=== PATIENT | female | born 1990 | race Caucasian/White ===

== ENCOUNTER → 2021-02-17 12:51 | Outpatient (BNVA) | payer OTHER, SELFPAY | PROVIDERS: PCP Physician Assistant Medical; Referring Provider Physician Assistant Medical; Visit Provider Anesthesiology ==

== ENCOUNTER 2021-03-30 15:04 | Outpatient (REF) | payer OTHER, SELFPAY ==
--- NOTE | ~2021-03-30 | XR_ITS ---
EXAMINATION: XR BILATERAL HIPS WITH AP PELVIS CLINICAL INFORMATION: Primary osteoarthritis, right hip COMPARISON: None TECHNIQUE: AP view of the pelvis and single views of each hip were obtained. FINDINGS: Bone alignment is normal. No fracture or dislocation is seen. The joint spaces are normal. Bones of the pelvis are normal. Soft tissues are normal. XR/XR hips MIKE min 3V IMPRESSION: Normal pelvis and hips.
== END 2021-03-30 15:05 | disposition home or self-care (01) ==
LOC: HO.XRAY 15:04
PROVIDERS: Visit Provider Anesthesiology
DX: M16.11 Unilateral primary osteoarthritis, right hip (principal)
CPT/HCPCS: 73522

== ENCOUNTER → 2021-04-07 11:39 | Outpatient (BNVA) | payer OTHER, SELFPAY | PROVIDERS: Visit Provider Anesthesiology ==

== ENCOUNTER 2021-04-20 06:16 | Outpatient (REF) | payer OTHER, SELFPAY ==
--- NOTE | ~2021-04-20 | FL_ITS ---
EXAMINATION: XR FLUOROSCOPY WITH IMAGES CLINICAL INFORMATION: Sacroiliitis. COMPARISON: Pelvic and hip radiographs dated 03/30/2021. TECHNIQUE: Fluoroscopy performed by Dr. Dean. Fluoroscopy time: 0.1 minutes DAP: 1.06 Gycm2 Images: 1 FINDINGS: Limited intraoperative fluoroscopic radiograph demonstrates injection in the region of the left sacroiliac. FL/FL guidance in treatment room IMPRESSION: Intraoperative fluoroscopic radiographs.
== END 2021-04-20 06:17 | disposition home or self-care (01) ==
LOC: HO.RADIR 06:16
PROVIDERS: Visit Provider Anesthesiology
DX: M46.1 Sacroiliitis, not elsewhere classified (principal); M53.3 Sacrococcygeal disorders, not elsewhere classified; M51.36 Other intervertebral disc degeneration, lumbar region; M47.816 Spondylosis without myelopathy or radiculopathy, lumbar region; M16.11 Unilateral primary osteoarthritis, right hip
CPT/HCPCS: 27096; J3300; Q9967

== ENCOUNTER → 2021-05-19 11:50 | Outpatient (BNVA) | payer OTHER, SELFPAY | PROVIDERS: PCP Physician Assistant Medical; Visit Provider Anesthesiology ==

== ENCOUNTER → 2021-08-04 11:13 | Outpatient (BNVA) | payer OTHER, MEDICAID, SELFPAY | PROVIDERS: PCP Physician Assistant Medical; Visit Provider Anesthesiology ==

== ENCOUNTER 2021-09-13 15:39 | Outpatient (RCR) | payer OTHER, SELFPAY ==
--- NOTE | 2021-12-02 09:22 | MHC.PT.DC ---
[facility] [place] Office [place] Office [place] Office [address] Len Leon [address] [phone] F: [phone] F: [phone] F: [phone] F: [phone] Physical Therapy Discharge Report Diagnosis: Date of Surgery: Date of Evaluation: Date of Discharge: Treatments to Date: Cancellations to Date: No Shows to Date: Discharge Status: Discharge Summary: Pt presented to evaluation questioning PT as to why she was here. Pt appeared to be agitated. Pt was informed she was referred to PT for cervicalgia and pain in her thoracic spine. Pt stating this area of her body was no longer painful and that her pain is now in her low back. Pt stating she wants another injection in her low back. Advised pt she should discuss this with her doctor. PT then educated pt on what PT entails and what is expected of her in PT including attending in person 2 times a week with an HEP daily at home. Pt stating she was not willing to comply with this expectation and proceeded to get up and leave therefore terminating the evaluation. Electronically signed by: Please sign and return to therapist. Thank you for your referral.
== END 2021-12-02 09:22 | disposition home or self-care (01) ==
LOC: HO.PT 15:39
PROVIDERS: Visit Provider Anesthesiology
DX: M54.2 Cervicalgia (principal); M54.6 Pain in thoracic spine

== ENCOUNTER → 2021-09-29 15:44 | Outpatient (BNVA) | payer OTHER, SELFPAY | PROVIDERS: PCP Physician Assistant Medical; Visit Provider Anesthesiology ==

== ENCOUNTER 2021-10-26 05:53 | Outpatient (REF) | payer OTHER, SELFPAY ==
--- NOTE | ~2021-10-26 | FL_ITS ---
EXAMINATION: XR FLUOROSCOPY WITH IMAGES CLINICAL INFORMATION: M46.1 - Sacroiliitis, not elsewhere classified COMPARISON: Fluoroscopic spot view 04/20/2021. TECHNIQUE: Fluoroscopy performed by Dr. Nik Dean. Fluoroscopy time: 0.2 minutes DAP: 1.85 Gycm2 Images: 2 FINDINGS: Spinal needle overlies lower right sacroiliac joint. There is para-articular contrast in the soft tissues and likely intra-articular contrast. No visible vascular communication. FL/FL guidance in treatment room IMPRESSION: Fluoroscopy for pain management procedure.
== END 2021-10-26 05:54 | disposition home or self-care (01) ==
LOC: HO.RADIR 05:53
PROVIDERS: Visit Provider Anesthesiology
DX: M46.1 Sacroiliitis, not elsewhere classified (principal); M47.816 Spondylosis without myelopathy or radiculopathy, lumbar region; M53.3 Sacrococcygeal disorders, not elsewhere classified; M51.36 Other intervertebral disc degeneration, lumbar region; G89.29 Other chronic pain
CPT/HCPCS: 27096; J3300; Q9967

== ENCOUNTER → 2021-11-24 09:38 | Outpatient (BNVA) | payer OTHER, MEDICAID, SELFPAY | PROVIDERS: PCP Physician Assistant Medical; Visit Provider Anesthesiology ==

== ENCOUNTER 2022-08-25 14:26 | Outpatient (REF) | payer OTHER, SELFPAY ==
--- NOTE | ~2022-08-25 | XR_ITS ---
EXAMINATION: BILATERAL KNEE X-RAY CLINICAL INFORMATION: Pain COMPARISON: None TECHNIQUE: Standing AP view of both knees and lateral and sunrise view of the left knee FINDINGS: Left knee: Bone alignment is normal. No fracture or dislocation is seen. Joint spaces are normal. There is no joint effusion. Standing AP view of the right knee is unremarkable. XR/XR knee LT 2V IMPRESSION: Unremarkable exam.
--- NOTE | ~2022-08-25 | XR_ITS ---
EXAMINATION: BILATERAL KNEE X-RAY CLINICAL INFORMATION: Pain COMPARISON: None TECHNIQUE: Standing AP view of both knees and lateral and sunrise view of the left knee FINDINGS: Left knee: Bone alignment is normal. No fracture or dislocation is seen. Joint spaces are normal. There is no joint effusion. Standing AP view of the right knee is unremarkable. XR/XR knee standing BI IMPRESSION: Unremarkable exam.
== END 2022-08-25 14:27 | disposition home or self-care (01) ==
LOC: HO.HOSX 14:26
PROVIDERS: Visit Provider Physician Assistant
DX: M25.562 Pain in left knee (principal)
CPT/HCPCS: 73560; 73565

== ENCOUNTER → 2022-09-26 09:29 | Outpatient (BNVA) | payer OTHER, SELFPAY | PROVIDERS: PCP Physician Assistant Medical; Visit Provider Internal Medicine | DX: M54.16 Radiculopathy, lumbar region (principal); M54.2 Cervicalgia; M54.6 Pain in thoracic spine; M47.816 Spondylosis without myelopathy or radiculopathy, lumbar region; M25.562 Pain in left knee | CPT/HCPCS: 99212 ==

== ENCOUNTER → 2023-02-10 11:11 | Outpatient (BNVA) | payer OTHER, SELFPAY | PROVIDERS: PCP Physician Assistant Medical; Visit Provider Internal Medicine | DX: M46.1 Sacroiliitis, not elsewhere classified (principal); M54.16 Radiculopathy, lumbar region; M47.816 Spondylosis without myelopathy or radiculopathy, lumbar region; M25.562 Pain in left knee | CPT/HCPCS: 99212 ==

== ENCOUNTER 2024-02-12 11:05 | Outpatient (AMB) | payer OTHER, SELFPAY ==
--- NOTE | 2024-02-12 11:11 | A.OFFVIS_ITS ---
Intake Vital Signs 02/12/24 11:21 Height 5 ft 2 in Weight 176 lb BMI 32.2 BP 140/84 H Blood Pressure Location Lt brachial Position Sitting Respiration 12 Pulse 90 Pulse Source Pulse Oximeter Pulse Oximetry (%) 96 Oxygen Delivery Method Room Air Intake Visit Reasons: Lumbar and Hip Pain Intake Note: Patient comes in to discuss hip pain. Reports pain 5/10 Allergies No Known Allergies Allergy (Verified 02/12/24 11:23) HPI HPI Comments History of Present Illness Details Ms. Mayorga today in my office again after long period of absence. She reports widespread pain starting from lower neck down the pain in between the shoulder blades lower thoracic spine lumbar spine pain in bilateral sacroiliac joints pain in bilateral knees. She reports that all of those pains are very severe and interfere with her activities of daily living. In the past she was under observation of sacroiliitis in this office she was treated with 2 injections 1 diagnostic and therapeutic to help her pain. She reports that she is smoking cigarettes. 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 I offered her to perform repeat of bilateral sacroiliac joint injections to at least help pain in the lower lumbar spine. Patient refused. 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 Review of Systems Const All systems reviewed & are unremarkable except as noted in HPI and below ENT Reports Normal hearing present Neuro Reports Normal hearing present, Denies confusion and Denies Sensory deficit (Neuro) Psych Denies confusion Physical Exam Vital Signs: Last Vital Signs Pulse 90 02/12/24 11:21 Resp 12 02/12/24 11:21 BP 140/84 H 02/12/24 11:21 Pulse Ox 96 02/12/24 11:21 Oxygen Delivery Method Room Air 02/12/24 11:21 BMI result Body Mass Index 32.2 Const General: comfortable, no acute distress, well developed, alert and awake; No confusion Orientation/consciousness: No confusion Eyes Pupils: Equal, round and reactive pupils present EOM: EOMs intact bilaterally Chest Chest palpation & inspection: normal inspection of the chest Resp Effort & Inspection: normal respiratory effort, able to speak in complete sentences, normal respiratory pattern, no audible wheezes and no cough Cardio Jugular venous distension: no JVD Back/Spine/Pelvis Other: tenderness on palpation in paraspinal spinal region in lumbar spine. Loading test is positive. Range of motion in lumbar spine is preserved. However she reports severe pain flexing backward and flexing forward. Garrett test is positive on the right she also reports discomfort in her groin with performing of Garrett test on the right. Straight leg rising is negative bilaterally. She exhibits normal strength of bilateral lower extremities is able to walk on bilateral feet non bilateral toes and on bilateral heels. She denies any sensory changes in bilateral lower extremities. She denies pelvic organ dysfunction. Neuro General: No confusion Cranial nerves: Yes Equal, round and reactive pupils present and Yes Normal hearing present Sensory Exam: No Sensory deficit (Neuro) Psych Speech and movement: Normal speech and movement present Affect: normal affect Attitude: cooperative Thought process: Normal thought process present Thought content: Normal thought content present Insight: Good insight present (Psych) Judgement: Good judgement present (Psych) Results Reviewed Results Reviewed: MRI of the lumbar spine 07/23/2020. Normal anatomic alignment moderate degenerative disc disease L4-5 L5-S1 vertebral body heights are maintained. The intervertebral discs of normal height is signal. Conus terminates at L1. L1-L2 normal annular contour no facet joint arthropathy no foraminal stenosis no spinal stenosis L2-L3 normal contour no facet arthropathy no neural foraminal stenosis no spinal canal stenosis. L3-L4 normal annular contour no facet joint arthropathy no neural foraminal stenosis no spinal canal stenosis. L4-5 mild diffuse disc bulge with superimposed moderate right subarticular foraminal extrusion. There is moderate bilateral facet joint arthropathy. There is moderate bilateral neural foraminal stenosis. There is stenosis of the right greater than left recess with mass effect on traversing L5 nerve roots. No overt spinal canal stenosis centrally. L5-S1. Central disc extrusion with slight superior migration. There is mild bilateral facet joint arthropathy there is mild bilateral neural foraminal stenosis. There is no spinal canal stenosis. Assessment & Plan Assessment & Plan (1) Lumbar radiculopathy: Code(s): M54.16 - Radiculopathy, lumbar region (2) Left knee pain: Code(s): M25.562 - Pain in left knee (3) Right knee pain: Code(s): M25.561 - Pain in right knee (4) Rheumatoid arthritis: Code(s): M06.9 - Rheumatoid arthritis, unspecified Plan This patient is back in my office after a long period of absence. I offered her to repeat sacroiliac joint injections to at least help her lower back pain she refused to go for the procedure. She reports widespread pain starting from the neck, pain in between the shoulder blades, pain in the lower thoracic spine, pain in the lower lumbar spine, pain in bilateral knees. She expressed firmly today that she is very reluctant to go for the additional repeat injections. Therefore this office can not help at this time this patient. I offered her to go for rheumatology consult I will make appropriate referral. Orders: Referrals Rheumatology Referral M06.9 - Rheumatoid arthritis, unspecified Coding Level of Care Code Est Pt Level 3 (22376) Diagnoses Lumbar radiculopathy M54.16 Left knee pain M25.562 Right knee pain M25.561 Rheumatoid arthritis M06.9
[2024-02-12 11:21] VITALS: BP 140/84; PULSE 90; RESP 12; O2SAT 96; BMI 32.2
== END 2024-02-12 11:42 | disposition home or self-care (01) ==
LOC: HO.PMC 11:05
PROVIDERS: PCP Physician Assistant Medical; Visit Provider Anesthesiology
DX: M54.16 Radiculopathy, lumbar region (principal); M25.562 Pain in left knee; M25.561 Pain in right knee; M06.9 Rheumatoid arthritis, unspecified
CPT/HCPCS: 99213

== ENCOUNTER → 2024-02-12 11:05 | Outpatient (BNVA) | payer OTHER, SELFPAY | PROVIDERS: PCP Physician Assistant Medical; Visit Provider Anesthesiology | DX: M54.50 Low back pain, unspecified (principal); M25.559 Pain in unspecified hip; M54.16 Radiculopathy, lumbar region; M25.562 Pain in left knee; M25.561 Pain in right knee; M06.9 Rheumatoid arthritis, unspecified | CPT/HCPCS: 99212 ==

== ENCOUNTER 2024-05-03 14:36 | Outpatient (AMB) | payer OTHER, SELFPAY ==
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
[2024-05-03 14:49] VITALS: BP 100/80; PULSE 85; O2SAT 99; BMI 32.0
== END 2024-05-03 15:12 | disposition home or self-care (01) ==
PROVIDERS: PCP Physician Assistant Medical; Visit Provider Nurse Practitioner Family
DX: M53.3 Sacrococcygeal disorders, not elsewhere classified (principal); G89.29 Other chronic pain; M47.816 Spondylosis without myelopathy or radiculopathy, lumbar region
CPT/HCPCS: 99204

== ENCOUNTER → 2024-05-03 14:36 | Outpatient (BNVA) | payer OTHER, SELFPAY | PROVIDERS: PCP Physician Assistant Medical; Visit Provider Nurse Practitioner Family | DX: M47.816 Spondylosis without myelopathy or radiculopathy, lumbar region (principal); M53.3 Sacrococcygeal disorders, not elsewhere classified; G89.29 Other chronic pain | CPT/HCPCS: 99202 ==

== ENCOUNTER 2024-12-12 14:03 | Outpatient (AMB) | payer MEDICAID, SELFPAY ==
[2024-12-12 14:12] VITALS: BP 130/76; PULSE 89; RESP 15; O2SAT 99; BMI 33.3
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
--- OUTSIDE RECORDS SUMMARY | 2024-12-12 18:36 | XMS_ITS ---
Author Organization [facility] Address [address] [place] [address] Phone Care Team Providers Care Cloth Mender Name Role Phone Nara Grijalva Primary Care Provider [phone] [facility] Unavailable [phone] Plan of Treatment No Plan of Treatment Recorded Assessments Includes: Assessments for all patient encounters No Assessments Recorded Medical Equipment - Implanted Devices Includes: Current and historical Devices No Medical Equipment Recorded Medications Administered Includes: Administered Medications in patient's chart No Administered Medications Recorded Vital Signs Includes: Vital Signs from 12/12/2023 through 12/12/2024 Vital Name 06/20/2024 10:42A 03/26/2024 08:46A 02/28 10:11A Blood Pressure Sitting (mmHg) 124/83 113/82 118/79 Pulse Rate-Sitting (bpm) 81 86 82 Temp-Temporal 96.9 97.1 97 Height (in) 63 63 63 Weight (lb) 181 181 170 Body Mass Index 32.1 32.1 30.1 Body Surface Area 1.9 1.9 1.8 Oxygen Saturation (%) 99 98 99 Last Documented: On 06/20/2024 10:42A M ; [facility], On 03/26/2024 8:47AM ; [facility], On 02/29/2024 10:11AM ; [facility] Results Includes: Results from 12/12/2023 through 12/12/2024 No Results Recorded For Specified Dates History of Present Illness History of Present Illness not supported for this document type No History of Present Illness Recorded Social History No Social History Recorded - Smoking Status Unknown Procedures and Surgical History Includes: Procedures from 12/12/2023 through 12/12/2024 Procedures Code Diagnosis Performing Provider Service Location Service Date X-Ray Exam Of Hand, min 3 views (Professional Comp., Right, Right Hand, Thumb) [id number] Cellulitis of right finger Joyce Magana MD [facility], 06/20/2024 Last Documented On 4 12:54PM ; [facility], X-Ray Exam Of Hand, min 3 views (Technical Ccomponent, Right, Right Hand, Thumb) [id number] Cellulitis of right finger [facility], 06/20/2024 Last Documented On 4 12:54PM ; [facility], X-Ray Exam Of Hand, min 3 views (Right, Right Hand, Thumb) [id number] Cellulitis of right finger [facility]undo Treadwell [facility], 03/26/2024 Last Documented On 4 10:18AM ; [facility], X-Ray Exam Of Hand, min 3 views (Right, Right Hand, Thumb) [id number] Cellulitis of right finger [facility], 02/29/2024 Last Documented On 4 8:39AM ; [facility], Medical History Includes: Medical History in patient's chart No Medical History Recorded Family History Includes: Family History in patient's chart No Family History Recorded Review of Systems Review of Systems not supported for this document type No Review of Systems Recorded Mental Status No Mental Status Recorded Functional Status No Functional Status Recorded Physical Exam Physical Exam not supported for this document type No Physical Exam Recorded Encounters Includes: Encounters from 12/12/2023 through 12/12/2024 Encounter Provider Location Date Check-In Time Check-Out Time Diagnosis Established Patient Joyce Magana MD [facility], 024 9:20AM 10:08AM Established Patient [facility], 024 8:40AM 9:02AM Established Patient [facility], 024 10:00AM 10:14AM Insurance Includes: Active Insurance Policies Plan Name Member ID Group # Subscriber Relationship Effect carla Dates 1 - [facility] [id number] HERMAN DILLARD Self Clinical Notes Includes: Signed Clinical Notes starting from 11/06/2022 * Progress note Date Encounter Last Documented by 06/20/2024 Established Patient Last emmanuelle lee on 06/20/2024; 10:44 AM, Joyce Magana MD; [facility], Physical Findings - Vitals taken 06/20/2024 10:42 am BP-Sitting 124/83 mmHg Pulse Rate-Sitting 81 bpm Temp-Temporal 96.9 F Height 63 in Weight 181 lbs Body Mass Index 32.1 kg/m2 Body Surface Area 1.9 m2 Oxygen Saturation 99 % Plan StartCited - Cellulitis of right finger Follow Up/Appointment: PRN EndCited User Defined 4 CHIEF COMPLAINT Right thumb infection that started with an artificial nail HISTORY OF PRESENT ILLNESS The patient is a 33-year-old female. She developed an infection involving the nail of her right thumb after having an artificial nail. She is here today for follow- up. no pain. doing well. PHYSICAL FINDINGS - Vitals taken 03/26/2024 08:46 am BP-Sitting 113/82 mmHg Pulse Rate-Sitting 86 bpm Temp-Temporal 97.1 F Height 63 in Weight 181 lbs Body Mass Index 32.1 kg/m2 Body Surface Area 1.9 m2 Oxygen Saturation 98 % No signs of infection right thumb at this point. Good motion of IP joint right thumb. New nail right thumb growing in. Tip of right thumb with good sensation and color IMPRESSION 1. Resolved infection tip of right thumb 2. New nail growing in PLAN f/u prn 1. Continue with good hygiene tip of right thumb with soap and water and possible Neosporin ointment 2. Continue with occupational therapy to restore function right thumb. * Progress note Date Encounter Last Documented by 03/26/2024 Established Patient Last docdorys lee on 03/26/2024; 9:13 AM, Raymundo Treadwell MD; [facility], Chief Complaint Right thumb infection that started with an artificial nail History of Present Illness The patient is a 33-year-old female. She developed an infection involving the nail of her right thumb after having an artificial nail. She is here today for follow- up. Physical Findings - Vitals taken 03/26/2024 08:46 am BP-Sitting 113/82 mmHg Pulse Rate-Sitting 86 bpm Temp-Temporal 97.1 F Height 63 in Weight 181 lbs Body Mass Index 32.1 kg/m2 Body Surface Area 1.9 m2 Oxygen Saturation 98 % No signs of infection right thumb at this point. Good motion of IP joint right thumb. New nail right thumb growing in. Tip of right thumb with good sensation and color User Defined 4 1. Resolved infection tip of right thumb 2. New nail growing in Plan StartCited - Cellulitis of right finger Follow Up/Appointment: 6 weeks EndCited 1. Continue with good hygiene tip of right thumb with soap and water and possible Neosporin ointment 2. Continue with occupational therapy to restore function right thumb. 3. Scheduled final visit in 6 weeks. * Progress note Date Encounter Last Documented by 02/29/2024 Established Patient Last documen rosa on 02/29/2024; 11:07 AM, Joyce Magana MD; [facility], Physical Findings - Vitals taken 02/29/2024 10:11 am BP-Sitting 118/79 mmHg Pulse Rate-Sitting 82 bpm Temp-Temporal 97 F Height 63 in Weight 170 lbs Body Mass Index 30.1 kg/m2 Body Surface Area 1.8 m2 Oxygen Saturation 99 % Plan StartCited - Cellulitis of right finger Follow Up/Appointment: 2 Weeks EndCited User Defined 4 Chief complaint Right thumb infection status post I&D HPI Patient presents today for follow-up. She has been taking antibiotics and still has another 5 days left. She states that she has minimal to no drainage. She is been soaking it daily. States the redness and swelling have essentially resolved. She still has some mild swelling. Her main complaint really is that she has limited range of motion. She states she has mild pain. Physical examination Mild to moderate swelling of the distal pulp of the digit. No erythema. No drainage expressible. Obvious nail deformity. Limited active range of motion of the IP joint but able to demonstrate about 30 to 40 degree arc of motion of the IP joint passively. Warm well-perfused hand with good cap refill X-rays reviewed. There is a question of osteomyelitis on one of the prior x-rays but clinically patient does not seem to have that sort of exam. Additionally her clinical history does not correlate with osteomyelitis Assessment plan Continue antibiotics. Follow-up in 2 weeks. Rest, ice, elevate. Continue soaking as needed. Given a prescription for therapy to work on range of motion. Keep the area clean and covered. If any worsening of symptoms please come back immediately.
--- OUTSIDE RECORDS SUMMARY | 2024-12-12 18:36 | XMS_ITS ---
Care Plan - [facility] Created on: December 12, 2024 HERMAN DILLARD : 1990 Sex: Female Author Organization [facility] Address [address] [place] [address] Phone Care Team Providers Care Drier And Grinder Tender Name Role Phone Nara Grijalva Primary Care Provider [phone] [facility] Unavailable [phone]
--- OUTSIDE RECORDS SUMMARY | 2024-12-12 18:37 | XMS_ITS | Clinical Summary ---
Author Organization [facility] Address [address] [place] [address] Phone Care Team Providers Care Technical Maintenance Specialist Name Role Phone Nara Grijalva Primary Care Provider [phone] [facility] Un[facility] [phone] Reason for Visit and Chief Complaint Established Patient Plan of Treatment Pending Tests Order Diagnosis Results Due Ordering P rovider Follow Up - Appointment PRN Cellulit is of right finger 06/20/24 Joyce Magana MD Last Documented On 4 10:44AM ; [facility] Assessments Includes: Assessments from this encounter No Assessments Recorded Medical Equipment - Implanted Devices Includes: Current Devices No Medical Equipment Recorded Medications Administered Includes: Administered Medications from this encounter No Administered Medications Recorded Vital Signs Includes: Vital Signs from this encounter Vital Name 06/20/2024 10:42A Blood Pressure Sitting (mmHg) 124/83 Pulse Rate-Sitting (bpm) 81 Temp-Temporal 96.9 Height (in) 63 Weight (lb) 181 Body Mass Index 32.1 Body Surface Area 1.9 Oxygen Saturation (%) 99 Last Documented: On 06/20/2024 10:42A M ; [facility] Results Includes: Results discussed during this encounter No Results Recorded For Specified Dates History of Present Illness Includes: History of Present Illness from this encounter No History of Present Illness Recorded Social History No Social History Recorded - Smoking Status Unknown Procedures and Surgical History Includes: Procedures from this encounter Procedures Code Diagnosis Performing Provider Service Location Service Date X-Ray Exam Of Hand, min 3 views (Professional Comp., Right, Right Hand, Thumb) [id number] Cellulitis of right finger Joyce Magana MD [facility] 06/20/2024 Last Documented On 4 12:54PM ; [facility] Of Hand, min 3 views (Technical Ccomponent, Right, Right Hand, Thumb) [id number] Cellulitis of right finger [facility] 06/20/2024 Last Documented On 12:54PM ; [facility] Medical History Includes: Medical History addressed during this encounter No Medical History Recorded Family History Includes: Family History addressed during this encounter No Family History Recorded Review of Systems Includes: Review of Systems from this encounter CHIEF COMPLAINT Right thumb infection that started [...] occupational therapy to restore function right thumb. Mental Status Includes: Mental Status from this encounter No Mental Status Recorded Functional Status Includes: Functional Status from this encounter No Functional Status Recorded Physical Exam Includes: Physical Exam from this encounter Encounters Encounter Provider Location Date Check-In Time Check-Out Time Diagnosis Established Patient [facility] 0[facility] 9:20AM 10:08AM Insurance Includes: Active Insurance Policies Plan Name Member ID Group # Subscriber Relationship Effect carla Dates 1 - [facility] [id number] HERMAN Anderson Clinical Notes Includes: Clinical Notes from this encounter * Progress note Date Encounter Last Documented by 06/20/2024 Established Patient Triston lee on 06/20/2024; 10:44 AM, Joyce Magana MD; [facility], Physical Findings - Vitals taken 06/20/2024 10:42 [...]
--- OUTSIDE RECORDS SUMMARY | 2024-12-12 18:37 | XMS_ITS | Clinical Summary ---
Author Organization [facility] Address [address] [place] [address] Phone Care Team Providers Care Perch Machine Inspector Name Role Phone Nara Grijalva Primary Care Provider [phone] [facility] Unavailable [phone] Reason for Visit and Chief Complaint Established Patient Plan of Treatment No Plan of Treatment Recorded Assessments Includes: Assessments from this encounter No Assessments Recorded Medical Equipment - Implanted Devices Includes: Current Devices No Medical Equipment Recorded Medications Administered Includes: Administered Medications from this encounter No Administered Medications Recorded Results Includes: Results discussed during this encounter No Results Recorded For Specified Dates History of Present Illness Includes: History of Present Illness from this encounter No History of Present Illness Recorded Social History No Social History Recorded - Smoking Status Unknown Medical History Includes: Medical History addressed during this encounter No Medical History Recorded Family History Includes: Family History addressed during this encounter No Family History Recorded Review of Systems Includes: Review of Systems from this encounter No Review of Systems Recorded Mental Status Includes: Mental Status from this encounter No Mental Status Recorded Functional Status Includes: Functional Status from this encounter No Functional Status Recorded Physical Exam Includes: Physical Exam from this encounter No Physical Exam Recorded Insurance Includes: Active Insurance Policies Plan Name Member ID Group # Subscriber Relationship Effect carla Dates 1 - [facility] [id number] HERMAN DILLARD Self Clinical Notes Includes: Clinical Notes from this encounter No Clinical Notes Recorded
--- OUTSIDE RECORDS SUMMARY | 2024-12-12 18:38 | XMS_ITS | Clinical Summary ---
Author Organization [facility] Address [address] [place] [address] Phone Care Team Providers Care Blogs Manager Name Role Phone Nara Grijalva Primary Care Provider [phone] [facility] Unavailable [phone] Reason for Visit and Chief Complaint Established Patient Plan of Treatment Pending Tests Order Diagnosis Results Due Ordering P moustapha Follow Up - Appointment 2 Weeks Cellulitis of right finger 02/29/24 Joyce Magana MD Last Documented On 4 11:07AM ; [facility] [place] [place] Assessments Includes: Assessments from this encounter No Assessments Recorded Medical Equipment - Implanted Devices Includes: Current Devices No Medical Equipment Recorded Medications Administered Includes: Administered Medications from this encounter No Administered Medications Recorded Vital Signs Includes: Vital Signs from this encounter Vital Name 02/29/2024 10:11A Blood Pressure Sitting (mmHg) 118/79 Pulse Rate-Sitting (bpm) 82 Temp-Temporal 97 Height (in) 63 Weight (lb) 170 Body Mass Index 30.1 Body Surface Area 1.8 Oxygen Saturation (%) 99 Last Documented: On 02/29/2024 10:11A M ; [facility] [place] Results Includes: Results discussed during this encounter [...] min 3 views (Right, Right Hand, Thumb) [id number] Cellulitis of right finger Joyce Magana MD [facility] 02/29/2024 Last Documented On 4 8:39AM ; [facility] [place] Medical History Includes: Medical History addressed during this encounter No Medical History Recorded Family History Includes: Family History addressed during this encounter No Family History Recorded Review of Systems Includes: Review of Systems from this encounter Chief complaint Right thumb infection status post [...] worsening of symptoms please come back immediately. Mental Status Includes: Mental Status from this encounter No Mental Status Recorded Functional Status Includes: Functional Status from this encounter No Functional Status Recorded Physical Exam Includes: Physical Exam from this encounter Encounters Encounter Provider Location Date Check-In Time Check-Out Time Diagnosis Established Patient Joyce Magana MD [facility] 024 10:00AM 10:14AM Insurance Includes: Active Insurance Policies Plan Name Member ID Group # Subscriber Relationship Effect carla Dates 1 - [facility] [id number] HERMAN DILLARD Self Clinical Notes Includes: Clinical Notes from this encounter * Progress note Date Encounter Last Documented by 02/29/2024 Established Patient Triston handley rosa on 02/29/2024; 11:07 AM, Joyce Magana MD; [facility], Physical Findings - Vitals taken 02/29/2024 10:11 [...]
--- OUTSIDE RECORDS SUMMARY | 2024-12-12 18:38 | XMS_ITS | Clinical Summary ---
Author Organization [facility] Address [address] [place] [address] Phone Care Team Providers Care Circus Laborer Name Role Phone Nara Grijalva Primary Care Provider [phone] [facility] Unavailable [phone] Reason for Visit and Chief Complaint Established Patient Plan of Treatment 1. Continue with good hygiene tip of right thumb with soap and water and possible Neosporin ointment 2. Continue with occupational therapy to restore function right thumb. 3. Scheduled final visit in 6 weeks. - Last Documented On 03/26/2024 9:13AM ; [facility] Pending Tests Order Diagnosis Results Due Ordering Carroll gerard Follow Up - Appointment 6 weeks Cellulit is of right finger 03/26/24 Raymundo Treadwell MD Last Documented On 9:12AM ; [facility] Assessments Includes: Assessments from this encounter No Assessments Recorded Medical Equipment - Implanted Devices Includes: Current Devices No Medical Equipment Recorded Medications Administered Includes: Administered Medications from this encounter No Administered Medications Recorded Vital Signs Includes: Vital Signs from this encounter Vital Name 03/26/2024 08:46A Blood Pressure Sitting (mmHg) 113/82 Pulse Rate-Sitting (bpm) 86 Temp-Temporal 97.1 Height (in) 63 Weight (lb) 181 Body Mass Index 32.1 Body Surface Area 1.9 Oxygen Saturation (%) 98 Last Documented: On 03/26/2024 8:47AM ; [facility] Results Includes: Results discussed during this encounter No Results Recorded For Specified Dates History of Present Illness Includes: History of Present Illness from this encounter HPI The patient is a 33-year-old female. She developed an infection involving the nail of her right thumb after having an artificial nail. She is here today for follow-up. Social History No Social History Recorded - Smoking Status Unknown Procedures and Surgical History Includes: Procedures from this encounter Procedures Code Diagnosis Performing Provider Service Location Service Date X-Ray Exam Of Hand, min 3 views (Right, Right Hand, Thumb) [id number] Cellulitis of right finger Raymundo Treadwell MD [facility] 03/26/2024 Last Documented On 4 10:18AM ; [facility] Medical History Includes: Medical History addressed during this encounter No Medical History Recorded Family History Includes: Family History addressed during this encounter No Family History Recorded Review of Systems Includes: Review of Systems from this encounter 1. Resolved infection tip of right thumb 2. New nail growing in Mental Status Includes: Mental Status from this encounter No Mental Status Recorded Functional Status Includes: Functional Status from this encounter No Functional Status Recorded Physical Exam Includes: Physical Exam from this encounter Encounters Encounter Provider Location Date Check-In Time Check-Out Time Diagnosis Established Patient Raymundo Treadwell MD [facility] 03/26/20 24 8:40AM 9:02AM Insurance Includes: Active Insurance Policies Plan Name Member ID Group # Subscriber Relationship Effect carla Dates 1 - [facility] [id number] HERMAN Anderson Clinical Notes Includes: Clinical Notes from this encounter * Progress note Date Encounter Last Documented by 03/26/2024 Established Patient Triston lee on 03/26/2024; 9:13 AM, Raymundo Treadwell MD; [facility] Chief Complaint Right thumb infection that started [...]
--- OUTSIDE RECORDS SUMMARY | 2024-12-12 18:38 | XMS_ITS | Clinical Summary ---
Author Organization [facility] Address [address] [place] [address] Phone Care Team Providers Care Folder Taper Operator Name Role Phone Nara Grijalva Primary Care Provider [phone] [facility] Unavailable [phone] Reason for Visit and Chief Complaint Established [...] Subscriber Relationship Effect carla Dates 1 - [facility] [id number] HERMAN DILLARD Self Clinical Notes Includes: Clinical Notes from this encounter No Clinical Notes Recorded
== END 2024-12-12 14:20 | disposition home or self-care (01) ==
PROVIDERS: PCP Physician Assistant Medical; Visit Provider Anesthesiology
DX: M54.16 Radiculopathy, lumbar region (principal); M25.562 Pain in left knee; M25.561 Pain in right knee; M06.9 Rheumatoid arthritis, unspecified; M48.00 Spinal stenosis, site unspecified
CPT/HCPCS: 99213

== ENCOUNTER → 2024-12-12 14:03 | Outpatient (BNVA) | payer MEDICAID, SELFPAY | PROVIDERS: PCP Physician Assistant Medical; Visit Provider Anesthesiology | DX: M54.16 Radiculopathy, lumbar region (principal); M25.562 Pain in left knee; M25.561 Pain in right knee; M06.9 Rheumatoid arthritis, unspecified; M48.00 Spinal stenosis, site unspecified | CPT/HCPCS: 99212 ==

== ENCOUNTER 2024-12-12 14:25 | Outpatient (REF) | payer MEDICAID, SELFPAY ==
[2024-12-12 14:48] LABS: MANUAL DIFF FLAG NO
[2024-12-12 15:08] LABS: Basophils Absolute Auto 0.1 X10*3/uL (0.0-0.2); Basophils Percent Auto 0.9 % (0-2); Eosinophils Absolute Auto 0.1 X10*3/uL (0.0-0.4); Eosinophils Percent Auto 0.9 % (0-4); Hematocrit 41.9 % (37.0-47.0); Imm Gran Abs Auto 0.05 X10*3/uL (0.00-0.03); Imm Gran Pct Auto 0.4 % (0.0-0.4); Lymphocytes Absolute Auto 4.7 X10*3/uL (1.2-4.9); Lymphocytes Percent Auto 34.4 % (20-40); Mean Corpuscular HGB Conc 33.4 g/dl (31.0-35.0); Mean Corpuscular Hemoglobin 33.6 pg (27.0-33.0); Mean Corpuscular Volume 100.5 fL (80.0-98.0); Mean Platelet Volume 8.9 fL (9.4-12.3); Monocytes Absolute Auto 0.7 X10*3/uL (0.1-1.2); Monocytes Percent Auto 5.1 % (2-11); Neutrophils Absolute Auto 7.9 x10*3/uL (2.0-8.3); Neutrophils Percent Auto 58.3 % (45-73); Platelet Count 366 X10*3/uL (160-400); Red Blood Count 4.17 X10*6/uL (4.20-5.50); White Blood Count 13.6 X10*3/uL (4.8-10.8)
[2024-12-12 15:33] LABS: Rheumatoid Factor < 13.0 IU/mL (<15.0)
[2024-12-12 15:53] LABS: Erythrocyte Sedimentation Rate 12 MM/HR (0-20)
[2024-12-12 16:07] LABS: Alanine Aminotransferase 18 U/L (0-31); Albumin Level 3.9 g/dL (3.5-5.0); Alkaline Phosphatase 74 U/L (39-117); Anion Gap 9 (12-20); Aspartate Amino Transferase 18 U/L (5-31); Bilirubin Total 0.3 mg/dL (0.0-1.0); Blood Urea Nitrogen 9 mg/dL (9-16); C Reactive Protein 0.69 mg/dL (< or = 0.50); Calcium 8.8 mg/dL (8.4-10.2); Carbon Dioxide 28 mmol/L (22-29); Chloride 109 mmol/L (96-108); Estimated Glomerular Filt Rate > 60; Glucose Random 86 mg/dL (60-115); Potassium 3.6 mmol/L (3.3-5.1); Sodium 142 mmol/L (135-145)
--- OUTSIDE RECORDS SUMMARY | 2024-12-12 19:08 | XMS_ITS | Clinical Summary ---
Author Organization [facility] Address [address] [place] [address] Phone Care Team Providers Care Veterinary Assistant Technician Name Role Phone Nara Grijalva Primary Care Provider [phone] [facility] Un[facility] [phone] Reason for Visit and Chief Complaint Established Patient Plan of Treatment Pending Tests Order Diagnosis Results Due Ordering P rovider Follow Up - Appointment PRN Cellulit is of right finger 06/20/24 Joyce Magana MD Last Documented On 4 10:44AM ; [facility] Assessments Includes: Assessments from this encounter [...] Last Documented: On 06/20/2024 10:42A M ; [facility] Results Includes: Results discussed during this [...] views (Professional Comp., Right, Right Hand, Thumb) [id number] Cellulitis of right finger Joyce Magana MD [facility] 06/20/2024 Last Documented On 4 12:54PM ; [facility] Of Hand, min 3 views (Technical Ccomponent, Right, Right Hand, Thumb) 46947 Cellulitis of right finger [facility] 06/20/2024 Last Documented On 12:54PM ; [facility] Medical History Includes: Medical History addressed [...] Time Diagnosis Established Patient [facility] 024 9:20AM 10:08AM Insurance Includes: Active Insurance Policies Plan Name Member ID Group # Subscriber Relationship Effect carla Dates 1 - [facility] [id number] HERMAN Anderson Clinical Notes Includes: Clinical Notes from this encounter * Progress note Date Encounter Last Documented by 06/20/2024 Established Patient Triston lee on 06/20/2024; 10:44 AM, Joyce Magana MD; [facility], Physical Findings - Vitals taken 06/20/2024 10:42 [...]
--- OUTSIDE RECORDS SUMMARY | 2024-12-12 19:08 | XMS_ITS ---
Care Plan - [facility] Created on: December 12, 2024 HERMAN DILLARD : 1990 Sex: Female Author Organization [facility] Address [address] [place] [address] Phone Care Team Providers Care Die Try Out Worker Stamping Name Role Phone Nara Grijalva Primary Care Provider [phone] [facility] Unavailable [phone]
--- OUTSIDE RECORDS SUMMARY | 2024-12-12 19:08 | XMS_ITS ---
Author Organization [facility] Address [address] [place] [address] Phone Care Team Providers Care Geological Technical Officer Name Role Phone Nara Grijalva Primary Care Provider [phone] [facility] Un[facility] [phone] Plan of Treatment No Plan of Treatment [...] Last Documented: On 06/20/2024 10:42A M ; [facility], On 03/26/2024 8:47AM ; [facility], On 02/29/2024 10:11AM ; [facility] Results Includes: Results from 12/12/2023 through [...] views (Professional Comp., Right, Right Hand, Thumb) [id number] Cellulitis of right finger Joyce Magana MD [facility], 06/20/2024 Last Documented On 4 12:54PM ; [facility], X-Ray Exam Of Hand, min 3 views (Technical Ccomponent, Right, Right Hand, Thumb) 94150 Cellulitis of right finger [facility] 06/20/2024 Last Documented On 4 12:54PM ; [facility], X-Ray Exam Of Hand, min 3 views (Right, Right Hand, Thumb) 26177 Cellulitis of right finger [facility]undo Treadwell [facility], 03/26/2024 Last Documented On 4 10:18AM ; [facility], X-Ray Exam Of Hand, min 3 views (Right, Right Hand, Thumb) 84459 Cellulitis of right finger [facility], 02/29/2024 Last Documented On 4 8:39AM ; [facility], Medical History Includes: Medical History in patient's [...] Time Diagnosis Established Patient Joyce Magana MD [facility], 024 9:20AM 10:08AM Established Patient [facility]undo Treadwell [facility] 024 8:40AM 9:02AM Established Patient [facility] 024 10:00AM 10:14AM Insurance Includes: Active Insurance Policies Plan Name Member ID Group # Subscriber Relationship Effect carla Dates [facility] [id number] HERMAN DILLARD Self Clinical Notes Includes: Signed Clinical Notes starting from 11/06/2022 * Progress note Date Encounter Last Documented by 06/20/2024 Established Patient Last emmanuelle lee on 06/20/2024; 10:44 AM, Joyce Magana MD; [facility], Physical Findings - Vitals taken 06/20/2024 10:42 [...] on 03/26/2024; 9:13 AM, Raymundo Treadwell MD; [facility], Chief Complaint Right thumb infection that started [...] on 02/29/2024; 11:07 AM, Joyce Magana MD; [facility], Physical Findings - Vitals taken 02/29/2024 10:11 [...]
--- OUTSIDE RECORDS SUMMARY | 2024-12-12 19:09 | XMS_ITS | Clinical Summary ---
Author Organization [facility] Address [address] [place] [address] Phone Care Team Providers Care Pediatric Anesthesiologist Name Role Phone Nara Grijalva Primary Care Provider [phone] [facility] Unavailable [phone] Reason for Visit and Chief Complaint Established [...] Subscriber Relationship Effect carla Dates 1 - [facility] [id number] HERMAN DILLARD Self Clinical Notes Includes: Clinical Notes from this encounter No Clinical Notes Recorded
--- OUTSIDE RECORDS SUMMARY | 2024-12-12 19:09 | XMS_ITS | Clinical Summary ---
Author Organization [facility] Address [address] [place] [address] Phone Care Team Providers Care Line Puller Name Role Phone Nara Grijalva Primary Care Provider [phone] [facility] Unavailable [phone] Reason for Visit and Chief Complaint Established [...] Subscriber Relationship Effect carla Dates 1 - [facility] [id number] HERMAN DILLARD Self Clinical Notes Includes: Clinical Notes from this encounter No Clinical Notes Recorded
--- OUTSIDE RECORDS SUMMARY | 2024-12-12 19:09 | XMS_ITS | Clinical Summary ---
Author Organization [facility] Address [address] [place] [address] Phone Care Team Providers Care Loader Technician Name Role Phone Nara Grijalva Primary Care Provider [phone] [facility] Unavailable [phone] Reason for Visit and Chief Complaint Established Patient Plan of Treatment Pending Tests Order Diagnosis Results Due Ordering P moustapha Follow Up - Appointment 2 Weeks Cellulitis of right finger 02/29/24 Joyce Magana MD Last Documented On 4 11:07AM ; [facility] Assessments Includes: Assessments from this encounter [...] Last Documented: On 02/29/2024 10:11A M ; [facility] Results Includes: Results discussed during this encounter [...] min 3 views (Right, Right Hand, Thumb) 25369 Cellulitis of right finger Joyce Magana MD [facility] 02/29/2024 Last Documented On 4 8:39AM ; [facility] Medical History Includes: Medical History addressed [...] Time Diagnosis Established Patient Joyce Magana MD [facility] 024 10:00AM 10:14AM Insurance Includes: Active Insurance Policies Plan Name Member ID Group # Subscriber Relationship Effect carla Dates 1 - [facility] [id number] HERMAN DILLARD Self Clinical Notes Includes: Clinical Notes from this encounter * Progress note Date Encounter Last Documented by 02/29/2024 Established Patient Triston handley rosa on 02/29/2024; 11:07 AM, Joyce Magana MD; [facility], Physical Findings - Vitals taken 02/29/2024 10:11 [...]
--- OUTSIDE RECORDS SUMMARY | 2024-12-12 19:09 | XMS_ITS | Clinical Summary ---
Author Organization [facility] Address [address] [place] [address] Phone Care Team Providers Care Core Machine Tender Name Role Phone Nara Grijalva Primary Care Provider [phone] [facility] Unavailable [phone] Reason for Visit and Chief Complaint Established Patient Plan of Treatment 1. Continue with good hygiene tip of right thumb with soap and water and possible Neosporin ointment 2. Continue with occupational therapy to restore function right thumb. 3. Scheduled final visit in 6 weeks. - Last Documented On 03/26/2024 9:13AM ; [facility] [place] Pending Tests Order Diagnosis Results Due Ordering Carroll gerard Follow Up - Appointment 6 weeks Cellulit is of right finger 03/26/24 Raymundo Treadwell MD Last Documented On 9:12AM ; [facility] [place] [...] 98 Last Documented: On 03/26/2024 8:47AM ; [facility] [place] [...] min 3 views (Right, Right Hand, Thumb) [id number] Cellulitis of right finger Raymundo Treadwell MD [facility] 03/26/2024 Last Documented On 4 10:18AM ; [facility] Medical History Includes: Medical History addressed during [...] Time Diagnosis Established Patient Raymundo Treadwell MD [facility] 03/26/20 24 8:40AM 9:02AM Insurance Includes: Active Insurance Policies Plan Name Member ID Group # Subscriber Relationship Effect carla Dates 1 - [facility] [id number] HERMAN Anderson Clinical Notes Includes: Clinical Notes from this encounter * Progress note Date Encounter Last Documented by 03/26/2024 Established Patient Triston lee on 03/26/2024; 9:13 AM, Raymundo Treadwell MD; [facility] Chief Complaint Right thumb infection that started [...]
[2024-12-17 12:24] LABS: Prot Elec - Albumin 3.9 g/dL (3.8-4.8); Prot Elec - Alpha1 0.3 g/dL (0.2-0.3); Prot Elec - Alpha2 0.6 g/dL (0.5-0.9); Prot Elec - Beta 1 0.4 g/dL (0.4-0.6); Prot Elec - Beta 2 0.4 g/dL (0.2-0.5); Prot Elec - Gamma 0.9 g/dL (0.8-1.7); Prot Elec - Total Protein 6.4 g/dL (6.1-8.1)
[2024-12-17 13:58] LABS: Cyclic Citrullinated Peptide <16 UNITS
[2024-12-18 14:13] LABS: IgA 192 mg/dL (47-310); IgG 994 mg/dL (600-1640); IgM 121 mg/dL (50-300)
[2024-12-19 15:38] LABS: HLA B27 Negative (Negative)
== END 2024-12-12 14:26 | disposition home or self-care (01) ==
LOC: HO.LAB 14:25
PROVIDERS: PCP Physician Assistant Medical; Visit Provider Nurse Practitioner Family
DX: M47.816 Spondylosis without myelopathy or radiculopathy, lumbar region (principal); M53.3 Sacrococcygeal disorders, not elsewhere classified; G89.29 Other chronic pain
CPT/HCPCS: 36415; 80053; 82784; 84165; 85025; 85652; 86140; 86200; 86334; 86431; 86812

== ENCOUNTER → 2024-12-30 19:39 | Outpatient (BNV) | payer MEDICAID, SELFPAY | PROVIDERS: PCP Physician Assistant Medical; Visit Provider Radiology Diagnostic Radiology | DX: M48.061 Spinal stenosis, lumbar region without neurogenic claudication (principal) | CPT/HCPCS: 72148 ==

== ENCOUNTER 2024-12-30 19:49 | Outpatient (REF) | payer MEDICAID, SELFPAY ==
--- NOTE | ~2024-12-30 | MR_ITS ---
EXAMINATION: MR LUMBAR SPINE WITHOUT CONTRAST CLINICAL INFORMATION: Spinal stenosis, lumbar region. COMPARISON: None available. TECHNIQUE: MRI of the lumbar spine was obtained using routine sequences without contrast. FINDINGS: Last rib-bearing vertebra labeled T12. No bone marrow STIR signal marrow edema. Disc desiccation, L4-5 and L5-S1 level. The alignment is normal. The conus medullaris ends at pedicle of L1 with normal signal. T12-L1: No disc herniation. No neuroforamina stenosis. L1-2: No disc herniation. No neuroforamina stenosis. L2-3: Broad-based disc bulging. No compression upon neural elements. L3-4: Broad-based disc bulging. Facet joint and ligamentum flavum hypertrophy. Facet effusion. No neuroforamina stenosis. No central spinal canal stenosis. L4-5: Right subarticular and foraminal broad-based disc herniation with a subtle focal hyperintense T2 signal suggesting annular fissure encroaching the right L5 and possibly right L4 exiting nerve root. Facet joint and ligamentum flavum hypertrophy. L5-S1: Central slightly right subarticular broad-based disc herniation resulting in ventral indentation to the thecal sac. Facet joint hypertrophy. No neuroforamina stenosis. There is a subtle focal hyperintense T2 signal in the disc likely annular fissure. No prevertebral compartment hematoma, mass or fluid collections. MR/MR lumbar spine wo con IMPRESSION: Right subarticular and foraminal broad-based disc herniation encroaching the right L5 and possibly the right L4 exiting nerve roots. Central slightly right subarticular broad-based disc herniation L5-S1 without compression upon neural elements. Electronically signed by: Tomy Mckinley MD 12/31/2024 07:42 AM EST
--- OUTSIDE RECORDS SUMMARY | 2024-12-30 19:52 | XMS_ITS ---
Care Plan - [facility] Created on: December 30, 2024 HERMAN DILLARD : 1990 Sex: Female Author Organization [facility] Address [address] [place] [address] Phone Care Team Providers Care Devulcanizer Charger Name Role Phone Nara Grijalva Primary Care Provider [phone] [facility] Unavailable [phone]
--- OUTSIDE RECORDS SUMMARY | 2024-12-30 19:52 | XMS_ITS | Clinical Summary ---
Author Organization [facility] Address [address] [place] [address] Phone Care Team Providers Care Electronic Tech Name Role Phone Nara Grijalva Primary Care Provider [phone] [facility] Unavailable [phone] Reason for Visit and Chief Complaint Established Patient Plan of Treatment 1. Continue with good hygiene tip of right thumb with soap and water and possible Neosporin ointment 2. Continue with occupational therapy to restore function right thumb. 3. Scheduled final visit in 6 weeks. - Last Documented On 03/26/2024 9:13AM ; [facility] Pending Tests Order Diagnosis Results Due Ordering Carroll gerard Follow Up - Appointment 6 weeks Cellulit is of right finger 03/26/24 Raymundo Treadwell MD Last Documented On 9:12AM ; [facility] Assessments Includes: Assessments from this encounter [...] 98 Last Documented: On 03/26/2024 8:47AM ; [facility] Results Includes: Results discussed during this [...] min 3 views (Right, Right Hand, Thumb) [id number] Cellulitis of right finger Raymundo Treadwell MD [facility] 03/26/2024 Last Documented On 4 10:18AM ; [facility] Medical History Includes: Medical History addressed during [...] Time Diagnosis Established Patient Raymundo Treadwell MD [facility] 03/26/20 24 8:40AM 9:02AM Insurance Includes: Active Insurance Policies Plan Name Member ID Group # Subscriber Relationship Effect carla Dates 1 - [facility] [id number] HERMAN Anderson Clinical Notes Includes: Clinical Notes from this encounter * Progress note Date Encounter Last Documented by 03/26/2024 Established Patient Triston lee on 03/26/2024; 9:13 AM, Raymundo Treadwell MD; [facility] Chief Complaint Right thumb infection that started [...]
--- OUTSIDE RECORDS SUMMARY | 2024-12-30 19:52 | XMS_ITS | Clinical Summary ---
Author Organization [facility] Address [address] [place] [address] Care Team Providers Care Clinical Education Assistant Name Role Phone Davon Chao MD Primary Care Provider [phone] Source Comments PLEASE NOTE, if this patient is a minor, it may be UNLAWFUL to discuss sensitive information that is contained in these records (such as FAMILY PLANNING, MENTAL HEALTH or SUBSTANCE ABUSE) with the minor patient's parent or other person without the patient's specific authorization.[facility] Allergies No known active allergies Medications tiZANidine (ZANAFLEX) 4 mg tabletIndication s:Chronic midline low back pain without sciatica PLEASE SEE ATTACHED FOR DETAILED DIRECTIONS 1 Active traMADoL (ULTRAM) 50 mg tabletIndication s:Chronic midline low back pain without sciatica Take 1 Tablet by mouth 4 (four) times daily as needed for pain 60 Tablet 1 Active nicotine (NICODERM CQ) 21 mg/24 hr patchIndications :Smoking addiction Place 1 Patch onto the skin once daily (every 24 hours) 28 Patch 1 Active hydrOXYzine HCL (ATARAX) 25 mg tablet Active pantoprazole (PROTONIX) 40 mg EC tabletIndication s:Gastroesophage al reflux disease without esophagitis TAKE 1 TABLET BY MOUTH EVERY DAY BEFORE BREAKFAST 90 Tablet 2 Active Active Problems Problem Noted Date Diagnosed Date Anxiety 11/07/2019 Screening-pulmonary TB 11/07/2019 Chronic right-sided low back pain with right-jessy ed sciatica 11/07/2019 PCOS (polycystic ovarian syndrome) 11/07/2019 Resolved Problems Problem Noted Date Diagnosed Date Resolved Date Encounter for general adult medical examination w/o abnormal findings 11/07/20192023 Social History Tobacco Use Types Packs/Day Years Used Date Smoking Tobacco: Every Day Cigarettes Smokeless Tobacco: Never Tobacco Cessation:Ready to Q uit: Yes Comments:pt wants to quit. Alcohol Use Standard Drinks/Week Comments Never 0 (1 standard drink = 0.6 oz pur e alcohol) Social Connections Answer Date Recorded Connectedness 0 08/17/2024 Financial Resource Strain Answer Date R ecorded Financial Resource Strain 0 2018 Stress Answer Date Recorded Stress 0 11/07/2019 Physical Activity Answer Date Recorded Physical Activity 0 11/07/2019 Food Insecurity Answer Date Recorded Food 0 08/22/2024 Transportation Needs Answer Date Record ed Transportation 0 11/07/2019 Housing Stability Answer Date Recorded Housing 0 11/07/2019 Safety and Environment Answer Date Bayron rded Safety 0 11/07/2019 Utilities Answer Date Recorded Utilities 0 11/07/2019 Employment Answer Date Recorded Stress 0 08/17/2024 Comments No Sex and Gender Information Value Date Recorded Sex Assigned at Female 11/07/2019 3:18 PM PST Legal Sex Female 11:14 AM PST Gender Identity Female 11/07/2019 3:18 PM PST Sexual Orientation Bisexual 07/21/2021 2: 57 PM PDT Last Filed Vital Signs Vital Sign Reading Time Taken Comments Blood Pressure 100/60 08/19/2021 1:08 PM EDT Pulse 82 08/19/2021 1:08 PM EDT Temperature 37.2 ??C (98.9 ??F) 08/19/2021 1:08 PM ED T Respiratory Rate 20 08/19/2021 1:08 PM EDT Oxygen Saturation - - Inhaled Oxygen Concentration - - Weight 68.5 kg (151 lb) 08/19/2021 1:08 PM EDT Height 160 cm (5' 3 ) 08/19/2021 1:08 PM EDT Body Mass Index 26.75 08/19/2021 1:08 PM EDT Plan of Treatment Health Maintenance Due Date Last Done Comments HPV Screening 1991 Hepatitis C Screening 1991 Pap + HPV 1991 Imm-DTaP/Tdap/Td (1 - Tdap) 2010 Imm-Hepatitis B (1 of 3 - 19 + 3-dose series) 2010 Imm-Pneumococcal (1 of 2 - PCV) 2010 Cervical Cancer Screening 2012 Pap Smear 2012 Annual Preventive Care Visit 08/19/2022 08/19/2021, 11/07/2019 Relationship Safety Screening/Counseling 08/19/2022 08/19/2021 Tobacco Cessation Counseling (#1) 08/19/2022 021 Tobacco Screening 08/19/2022 08/19/2021 [id number] ( season) 2024 Imm-Influenza (#1) 2024 Hypertension Screening (#1) 08/18/2024 Alcohol and Drug Screen 11/27/2024 06/17/2021, 11/07 Depression Annual Screen 11/27/2024 06/17/2021 HIV Screening Completed 12/25/2019 Cervical Ablation/Cold-Knife Conization Discontinued Cervical Cryotherapy Discontinued Colposcopy Discontinued Endometrial Biopsy Discontinued Excision/Leep Discontinued HPV Genotyping Discontinued Vaginal Pap Discontinued Vulvoscopy Discontinued Procedures Procedure Name Priority Date/Time Associated Diagnosis Comments REFERRAL SCANNED DOCUMENT 12/12/2024 3:00 AM EST LAB SCANNED DOCUMENT 12/12/2024 3:00 AM EST LAB SCANNED DOCUMENT 12/12/2024 3:00 AM EST LAB SCANNED DOCUMENT 12/12/2024 3:00 AM EST LAB SCANNED DOCUMENT 12/12/2024 3:00 AM EST ANTIBODY HIV-1&HIV-2 SINGLE RESULT Routine 12/25/2019 3:40 PM EST Encounter for general adult medical examination w/o abnormal findings from Last 3 Months or Most Recently Relevant to Health Maintenance Results * REFERRAL SCANNED DOCUMENT (12/12/2024 3:00 AM EST) 12/12/2024 3:00 AM EST us Nara Tay PA-C SCAN REFERRAL Final Result * LAB SCANNED DOCUMENT (12/12/2024 3:00 AM EST) Only the most recent of4 resultswithin the time period is included. 12/12/2024 3:00 AM EST Nara Tay PA-C SCAN LAB Final Result * HIV-1 & HIV-2 ANTIBODIES (12/25/2019 3:40 PM EST) [facility] HIV 1 AND 2 ANTIBODY SCREEN NEGATIVE NEGATIVE [facility] Comment: This assay is a 4th generation assay allowing for earlier detection of HIV infection by detecting the presence of the HIV-1 p24 antigen as well as the traditional antibodies to HIV type 1 (including group O) and type 2. ??Use of a 4th generation assay is the current CDC recommendation for HIV screening. Blood specimen (specimen) Blood / Unknown 12/25/2019 3:40 PM EST 12/25/2019 3:43 PM EST Narrative [facility] - 12/25/2019 8:43 PM EST [employer], [place] [address] [employer]er Assembler - María Oro MD PT ID [id number] ORD# [id number] [facility] - [place] [address], from Last 3 Months or Most Recently Relevant to Health Maintenance Insurance [employer] Care Teams Clinical Education Assistant Relationship Specialty Start Date End Date Davon Chao MD [address] [place] [address] PCP - General Internal Medicine 06/23/21
--- OUTSIDE RECORDS SUMMARY | 2024-12-30 19:52 | XMS_ITS ---
Author Organization [facility] Address [address] [place] [address] Phone Care Team Providers Care Toll Mechanic Name Role Phone Nara Grijalva Primary Care Provider [phone] [facility] [phone] Plan of Treatment No Plan of Treatment Recorded Assessments Includes: Assessments for all patient encounters No Assessments Recorded Medical Equipment - Implanted Devices Includes: Current and historical Devices No Medical Equipment Recorded Medications Administered Includes: Administered Medications in patient's chart No Administered Medications Recorded Vital Signs Includes: Vital Signs from 12/30/2023 through 12/30/2024 Vital Name 06/20/2024 10:42A 03/26/2024 08:46A 02/28 10:11A Blood Pressure Sitting (mmHg) 124/83 113/82 118/79 Pulse Rate-Sitting (bpm) 81 86 82 Temp-Temporal 96.9 97.1 97 Height (in) 63 63 63 Weight (lb) 181 181 170 Body Mass Index 32.1 32.1 30.1 Body Surface Area 1.9 1.9 1.8 Oxygen Saturation (%) 99 98 99 Last Documented: On 06/20/2024 10:42A M ; [facility], On 03/26/2024 8:47AM ; [facility], On 02/29/2024 10:11AM ; [facility], Results Includes: Results from 12/30/2023 through 12/30/2024 No Results Recorded For Specified Dates History of Present Illness History of Present Illness not supported for this document type No History of Present Illness Recorded Social History No Social History Recorded - Smoking Status Unknown Procedures and Surgical History Includes: Procedures from 12/30/2023 through 12/30/2024 Procedures Code Diagnosis Performing Provider Service Location Service Date X-Ray Exam Of Hand, min 3 views (Professional Comp., Right, Right Hand, Thumb) [id number] Cellulitis of right finger Joyce Magana MD [facility], 06/20/2024 Last Documented On 4 12:54PM ; [facility], X-Ray Exam Of Hand, min 3 views (Technical Ccomponent, Right, Right Hand, Thumb) [id number] Cellulitis of right finger [facility] 06/[facility]/2024 Last Documented On 4 12:54PM ; [facility], X-Ray Exam Of Hand, min 3 views (Right, Right Hand, Thumb) [id number] Cellulitis of right finger [facility]undo [facility]readwell [facility], 03/26/2024 Last Documented On 4 10:18AM ; [facility], [facility] Exam Of Hand, min 3 views (Right, Right Hand, Thumb) [id number] Cellulitis of right finger [facility], 02/29/2024 Last Documented On 4 8:39AM ; [facility], Medical History Includes: Medical History in [...] Physical Exam Recorded Encounters Includes: Encounters from 12/30/2023 through 12/30/2024 Encounter Provider Location Date Check-In Time Check-Out Time Diagnosis Established Patient Joyce Magana MD [facility], 024 9:20AM 10:08AM Established Patient [facility] 024 8:40AM 9:02AM Established Patient [facility], 024 10:00AM 10:14AM Insurance Includes: Active Insurance Policies Plan Name Member ID Group # Subscriber Relationship Effect carla Dates 1 - [facility] [id number] HERMAN DILLARD Self Clinical Notes Includes: Signed Clinical Notes starting from 11/06/2022 * Progress note Date Encounter Last Documented by 06/20/2024 Established Patient Last emmanuelle lee on 06/20/2024; 10:44 AM, Joyce Magana MD; [facility], Physical Findings - Vitals taken 06/20/2024 [...] on 03/26/2024; 9:13 AM, Raymundo Treadwell MD; [facility], Chief Complaint Right thumb infection that [...] on 02/29/2024; 11:07 AM, Joyce Magana MD; [facility], Physical Findings - Vitals taken 02/29/2024 [...]
--- OUTSIDE RECORDS SUMMARY | 2024-12-30 19:52 | XMS_ITS | Clinical Summary ---
Author Organization [facility] Address [address] [place] [address] Phone Care Team Providers Care Chemical Pathologist Name Role Phone Nara Grijalva Primary Care Provider [phone] [facility] Unavailable [phone] Reason for Visit and Chief Complaint Established [...] Subscriber Relationship Effect carla Dates 1 - [facility] [id number] HERMAN DILLARD Self Clinical Notes Includes: Clinical Notes from this encounter No Clinical Notes Recorded
--- OUTSIDE RECORDS SUMMARY | 2024-12-30 19:52 | XMS_ITS | Clinical Summary ---
Author Organization [facility] Address [address] [place] [address] Phone Care Team Providers Care Laundry Clerk Name Role Phone Nara Grijalva Primary Care Provider [phone] [facility] Unavailable [phone] Reason for Visit and Chief Complaint Established [...] Subscriber Relationship Effect carla Dates 1 - [facility] [id number] HERMAN DILLARD Self Clinical Notes Includes: Clinical Notes from this encounter No Clinical Notes Recorded
--- OUTSIDE RECORDS SUMMARY | 2024-12-30 19:52 | XMS_ITS | Clinical Summary ---
Author Organization [facility] [address] [place] [address] [place] [phone] Phone Care Team Providers Care Bar Pilot Name Role Phone Saloni Patino MD Primary Care Provider Allergies No known active allergies Medications Medication Sig Dispensed Refills Start Date End Date Status norelgestromin-ethi nyl estradiol (ORTHO EVRA) 150-35 mcg/[address] 1 patch on the skin 1 (one) time per week. Apply 1 patch each week for 3 weeks, then remove for 1 week. 9 patch 3 10/23/2024 10/23/2025 Active baclofen (LIORESAL) 10 mg tablet Take by mouth. 09/15/2020 Active amoxicillin-clavula madai (AUGMENTIN) 875-125 mg per tablet Take 1 tablet by mouth 2 (two) times a day. 02/21/2024 Active triamcinolone (KENALOG) 0.025 % ointment Apply 3-4x/day to affected area 15 g 1 10/30/2024 Active diphenhydrAMINE (BENADRYL) 50 mg tablet Take 1 tablet (50 mg total) by mouth at bedtime as needed for itching. 30 tablet 1 10/30/2024 Active Active Problems No known active problems Encounters Date Type Department Care Team Description 10/30/2024 1:15 PM EST Office Visit Obstetrics and Gynecology [address] [phone] Beth Diaz CNM Vaginal discharge (Primary Dx); Vaginal itching; Vaginal odor; Venereal disease screening 10/28/2024 Telephone Obstetrics & Gynecology - [facility] [address] [place] [phone] Beatrice Grigsby CNM Vaginal/vulvar Complaint 10/11/2024 8:03 AM EST - 10/11/2024 11:37 AM EST Emergency [facility] Emergency [address] [place] [phone] Stress at home (Primary Dx); Gastroesophageal reflux disease, unspecified whether esophagitis present Discharge Disposition: Home or Self Care 10/10/2024 9:53 AM EST - 10/10/2024 11:59 PM EST Hospital Encounter Radiology Department - [address] [phone] Breast lump Discharge Disposition: Home or Self Care 10/10/2024 9:53 AM EST - 10/10/2024 11:59 PM EST Hospital Encounter Radiology Department - [address] [phone] Mass of upper outer quadrant of left breast Discharge Disposition: Home or Self Care 10/03/2024 10:30 AM EST Office Visit Obstetrics and Gynecology - [address] [phone] Rosio Osman PA Vaginal odor (Primary Dx); Screen for STD (sexually transmitted disease); Vaginal discharge; Mass of upper outer quadrant of left breast; Abnormal urine odor from Last 3 Months Surgical History Surgery Date Site/Laterality Comments MULTIPLE TOOTH EXTRACTIONS 04/2021 PROCEDURE: HISTORICAL DENTAL EXTRACTION; COMMENT: and brige placed Medical History Medical History Date Comments Depression DX:Depression; C OMMENT: Hx of suicide attempt yrs ago Historical Medical DX DX:Abnorma l Pap smear Anxiety DX:Anxiety Panic attack DX:Panic attack Family History Medical History Relation Name Comments No Known Problems Brother x2 Lung cancer Maternal Grandmother Other: denies Other 1 No Known Problems Sister x1 Breast cancer Neg Hx Colon cancer Neg Hx Ovarian cancer Neg Hx Relation Name Status Comments Brother x2 Alive Father Alive Depression,Bipo lar disorder, Alcoholism Maternal Grandfather Alcohol ism Maternal Grandmother Leukemi a Mother Alive Gestational DM Other 1 Other 2 Paternal Grandmother Alive Asthma Sister x1 Alive Social History Tobacco Use Types Packs/Day Years Used Date Smoking Tobacco: Every Day Cigarettes Smokeless Tobacco: Never Tobacco Cessation:Ready to Q uit: Not Asked; Counseling Given: Not Answered Alcohol Use Standard Drinks/Week Comments Yes 0 (1 standard drink = 0.6 oz pur e alcohol) Housing Instability Answer Date Recorde d Are you worried that in the next 2 months you may not have stable housing? No 10/29/2024 Food Access & Nutrition Answer Date Rec orded Do you have access to a vari ety of food including fruits and vegetables? Yes 10/29/2024 Access to Healthcare Answer Date Record ed Within the last 3 months, ho w many times did you visit the emergency department for your medical care? 1 10/29/2024 Health Literacy Answer Date Recorded How often do you need to hav e someone help you when you read instructions, pamphlets, or other written material from your doctor or pharmacy? Sometimes 10/29/2024 Caregiver: How often do you need to have someone help you when you read instructions, pamphlets, or other written material from your doctor or pharmacy? Not on file 10/29/2024 Financial Risk Answer Date Recorded How hard is it for you to pa y for the very basics like food, housing, medical care, and air conditioning / heating? Not very hard 10/29/2024 Transportation Answer Date Recorded Has the lack of transportati on kept you from meetings, work, or from getting things needed for daily living? No Has the lack of transportati on kept you from medical appointments or from getting medications? No 10/29/2024 Social Isolation Answer Date Recorded How often do you feel lonely or isolated from those around you? Sometimes 10/29/2024 Food Risk Answer Date Recorded Within the past 12 months we worried whether our food would run out before we got money to buy more. Never true 10/29/2024 Within the past 12 months th e food we bought just didn't last and we didn't have money to get more. Never true 10/29/2024 Dependent Care Answer Date Recorded Do you need help finding or paying for care for your loved ones. For example, attendant child activity or elderly care for an older adult? No 10/29/2024 Education Answer Date Recorded Do you think completing more education or training, like finishing a GED, going to college, or learning a trade, would be helpful for you? N/A 10/29/2024 Employment and Income Answer Date Recor ded During the last four weeks, have you been actively looking for work? Yes 10/29/2024 Living Situation Answer Date Recorded What is your living situation? 1 12/30/2023 Sex and Gender Information Value Date Recorded Sex Assigned at Not on file Gender Identity Not on file Sexual Orientation Not on file Job Start Date Occupation Industry Not on file Not on file Not on file Obstetrics History Para Term AB IAB SAB Ectopic Multiple Livin g Live Births 0 0 0 0 0 0 0 0 0 0 0 Last Filed Vital Signs Vital Sign Reading Time Taken Comments Blood Pressure 109/78 10/30/2024 1:25 PM EST Pulse 81 10/30/2024 1:25 PM EST Temperature 36.6 ??C (97.9 ??F) 10/11/2024 11:[address] Respiratory Rate 14 10/11/2024 11:10 AM EST Oxygen Saturation 97% 10/11/2024 11:10 AM EST Inhaled Oxygen Concentration - - Weight 81.6 kg (180 lb) 10/30/2024 1:25 PM EST Height 157.5 cm (5' 2 ) 10/11/2024 4:01 AM EST Body Mass Index 32.92 10/11/2024 4:01 AM EST Plan of Treatment Health Maintenance Due Date Last Done Comments Pneumococcal Vaccine: Pediatrics (0 to 5 Years) and At-Risk Patients (6 to 64 Years) (1 of 2 - PCV) 1997 DTaP,Tdap,and Td Vaccines (1 - Tdap) 2010 Hepatitis B Vaccines (1 of 3 - 19+ 3-dose series) 2010 Hepatitis C Screening 10/25/2022 Cervical Cancer Screening: P ap Smear 05/26/2024 05/26/2021 COVID-19 Vaccine ( - 2023-2 5 season) 2024 Influenza Vaccine (#1) 2024 Depression Screening 10/29/2025 10/29/2024 Social Influencers of Health Screening 10/29/2025 10/29/2024 Cholesterol Screening (Lipid Panel) 08/19/2026 08/19/2021, 08/19/2021, 12/25/2019 HIV Screening Completed 10/03/2024, 12/25/2019 HIB Vaccines Aged Out No longer eligi ble based on patient's age to complete this topic HPV Vaccines Aged Out No longer eligi ble based on patient's age to complete this topic Hepatitis A Vaccines Aged Out No long er eligible based on patient's age to complete this topic IPV Vaccines Aged Out No longer eligi ble based on patient's age to complete this topic MMR Vaccines Aged Out No longer eligi ble based on patient's age to complete this topic Meningococcal ACWY Vaccine Aged Out N o longer eligible based on patient's age to complete this topic RSV Immunization Patients Under 20 months Aged Out No longer eligible b ased on patient's age to complete this topic Varicella Vaccines Aged Out No longer eligible based on patient's age to complete this topic Procedures Procedure Name Priority Date/Time Associated Diagnosis Comments TRICHOMONAS VAGINALIS ANTIGEN Routine 10/30/2024 1:49 PM EST Vaginal discharge Vaginal itching Vaginal odor WET PREP, GENITAL Routine 10/30/2024 1:4 9 PM EST Vaginal discharge Vaginal itching Vaginal odor CHLAMYDIA TRACHOMATIS AND NEISSERIA GONORRHOEAE PCR Routine 10/30/2024 1:49 PM EST Venereal disease screening RESPIRATORY VIRUS PANEL MOLECULAR STUDY STAT 10/11/2024 10:23 AM EST XR CHEST 2 VIEWS STAT 10/11/2024 5:15 AM EST TROPONIN I HIGH SENSITIVITY STAT 10/11/2024 5:03 AM EST ECG 12-LEAD STAT 10/11/2024 4:59 AM EST POC , URINE DIAGNOSTIC STAT 10/11/2024 4:13 AM EST OSMAN URINE CULTURE TUBE STAT 10/11/20 24 4:03 AM EST URINALYSIS WITH REFLEX MICROSCOPIC AND CULTURE STAT 10/11/2024 4:03 AM EST URINALYSIS WITH REFLEX MICROSCOPIC AND CULTURE STAT 10/11/2024 4:03 AM EST CULTURE URINE STAT 10/11/2024 4:03 AM EST CBC WITH AUTO DIFFERENTIAL STAT 10/11/2024 4:00 AM EST MAGNESIUM STAT 10/11/2024 4:00 AM EST LIPASE STAT 10/11/2024 4:00 AM EST COMPREHENSIVE METABOLIC PANEL STAT 10/11/2024 4:00 AM EST CBC AND DIFFERENTIAL STAT 10/11/2024 4:00 AM EST TROPONIN I HIGH SENSITIVITY STAT 10/11/2024 4:00 AM EST ECG 12-LEAD STAT 10/11/2024 3:51 AM EST ECG ANNOTATED 10/11/2024 ECG ANNOTATED 10/11/2024 US BREAST LIMITED LEFT Routine 10:21 AM EST Breast lump MG MAMMO DIGITAL DIAGNOSTIC W TIMUR BILAT Today 10/10/2024 10:10 AM EST Mass of upper outer quadrant of left breast HIV 1, 2 ANTIBODY, P24 ANTIGEN WITH REFLEX TO DIFFERENTIATION Routine 10/03/2024 12:30 PM EST Screen for STD (sexually transmitted disease) POC URINE AUTO W/O MICRO Routine 10/03/2024 11:48 AM EST Abnormal urine odor URINALYSIS MICROSCOPIC ONLY Routine 10/03/2024 11:26 AM EST Abnormal urine odor URINALYSIS MICROSCOPIC ONLY Routine 10/03/2024 11:26 AM EST Abnormal urine odor TRICHOMONAS VAGINALIS ANTIGEN Routine 10/03/2024 11:20 AM EST Vaginal odor CHLAMYDIA TRACHOMATIS AND NEISSERIA GONORRHOEAE PCR Routine 10/03/2024 11:20 AM EST Screen for STD (sexually transmitted disease) CULTURE URINE Routine 10/03/2024 11:20 AM EST Abnormal urine odor WET PREP, GENITAL Routine 10/03/2024 11: 20 AM EST Vaginal odor PAP SMEAR Routine 05/26/2021 from Last 3 Months or Most Recently Relevant to Health Maintenance Results * Trichomonas vaginalis antigen (10/30/2024 1:49 PM EST) Only the most recent of2 resultswithin the time period is included. Trichomonas vaginalis Negative Negative 10/30/2024 6:45 PM EST [facility] Swab Vaginal structure / Unknown Non-blood Collection / Unknown 10/30/2024 1:49 PM EST 10/30/2024 1:49 PM EST Beth Diaz [facility] LAB MICROBIOLOGY - G ENERAL ORDERABLES [facility] [address] [place] [address], * Chlamydia trachomatis and Neisseria gonorrhoeae molecular study (10/30/2024 1:49 PM EST) Only the most recent of2 resultswithin the time period is included. Neisseria gonorrhoeae PCR Negative Negative LAB MOLECULAR DIAGNOSTICS METHOD 10/31/2024 9:36 AM EST [facility] Chlamydia trachomatis PCR Negative Negative LAB MOLECULAR DIAGNOSTICS METHOD 10/31/2024 9:36 AM EST [facility] Swab Vaginal structure / Unknown Non-blood Collection / Unknown 10/30/2024 1:49 PM EST 10/30/2024 1:49 PM EST [facility] LAB MICROBIOLOGY - G ENERAL ORDERABLES Performing Organization Address City/[facility]/ZIP Co de Phone Number [facility] [address] [place] [address], * Wet prep, genital (10/30/2024 1:49 PM EST) Only the most recent of2 resultswithin the time period is included. [facility] Clue Cells, Wet Prep Negative Negative 10/30/2024 6:32 PM EST [facility] Yeast, Wet Prep Negative Negative 10/30/2024 6:32 PM EST [facility] Trichomonas, Wet Prep Indeterminate Negative 10/30/2024 6:32 PM EST [facility] Comment:Refer to Trichomonas antigen. Swab Vaginal structure / Unknown Non-blood Collection / Unknown 10/30/2024 1:49 PM EST 10/30/2024 1:49 PM EST [facility] LAB MICROBIOLOGY - G ENERAL ORDERABLES Performing Organization Address City/[facility]/ZIP Co de Phone Number [facility] [address] [place] [address], * Respiratory virus panel molecular study (10/11/2024 10:23 AM EST) [facility] Adenovirus Detection by PCR Not Detected Not Detected LAB MICROBIOLOGY METHOD 10/11/2024 11:26 AM EST [facility] Influenza A PCR Not Detected Not Detected LAB MICROBIOLOGY METHOD 10/11/2024 11:26 AM [facility] Influenza B PCR Not Detected Not Detected LAB MICROBIOLOGY METHOD 10/11/2024 11:26 AM [facility] Coronavirus 229E Not Detected Not Detected LAB MICROBIOLOGY METHOD 10/11/2024 11:26 AM [facility] Coronavirus HKU1 Not Detected Not Detected LAB MICROBIOLOGY METHOD 10/11/2024 11:26 AM [facility] Coronavirus OC43 Not Detected Not Detected LAB MICROBIOLOGY METHOD 10/11/2024 11:26 AM [facility] Coronavirus NL63 Not Detected Not Detected LAB MICROBIOLOGY METHOD 10/11/2024 11:26 AM [facility] Parainfluenza Virus 1 Not Detected Not Detected LAB MICROBIOLOGY METHOD 10/11/2024 11:26 AM [facility] Parainfluenza Virus 2 Not Detected Not Detected LAB MICROBIOLOGY METHOD 10/11/2024 11:26 AM [facility] Parainfluenza Virus 3 Not Detected Not Detected LAB MICROBIOLOGY METHOD 10/11/2024 11:26 AM [facility] Parainfluenza Virus 4 Not Detected Not Detected LAB MICROBIOLOGY METHOD 10/11/2024 11:26 AM [facility] RSV PCR Not Detected Not Detected LAB MICROBIOLOGY METHOD 10/11/2024 11:26 AM [facility] Human Metapneumovirus A and B Not Detected Not Detected LAB MICROBIOLOGY METHOD 10/11/2024 11:26 AM [facility] Rhinovirus/Entero virus Not Detected Not Detected LAB MICROBIOLOGY METHOD 10/11/2024 11:26 AM [facility] Bordetella pertussis Not Detected Not Detected LAB MICROBIOLOGY METHOD 10/11/2024 11:26 AM [facility] Bordetella parapertussis Not Detected Not Detected LAB MICROBIOLOGY METHOD 10/11/2024 11:26 AM [facility] Mycoplasma pneumo by PCR Not Detected Not Detected LAB MICROBIOLOGY METHOD 10/11/2024 11:26 AM [facility] Chlamydia pneumoniae Not Detected Not Detected LAB MICROBIOLOGY METHOD 10/11/2024 11:26 AM [facility] SARS COV-2 Not Detected Not Detected LAB MICROBIOLOGY METHOD 10/11/2024 11:26 AM [facility] Swab Both anterior nares / Unknown Non-blood Collection / Unknown 10/11/2024 10:23 AM EST 10/11/2024 10:27 AM EST Narrative [facility] - 10/11/2024 11:26 AM EST Testing was performed using the [employer] Respiratory Pathogen PCR Assay. All results must be correlated with the clinical findings. Results should not be used as the sole basis for diagnosis. False Negative results may occur from the presence of sequence variants in the region targeted by the assay or the presence of inhibitors. Results may be affected by concurrent antiviral/antimicrobial therapy or levels of organisms that are below the limit of detection. [facility] OVALLES LAB MICROBIOLOGY - GENERAL ORDERABLES [facility] [address] [place] [address], * XR Chest 2 Views (10/11/2024 5:15 AM EST) Anatomical Region Laterality Modality Body Radiographic Kristen ging 10/11/2024 7:44 AM EST Impressions 10/11/2024 7:45 AM EST Normal chest exam. -------- FINAL REPORT -------- Dictated By: Anurag Lee Dictated Date: 10/11/2024 07:44 ET Assigned Physician: Anurag Lee Reviewed and Electronically Signed By: Anurag Lee Signed Date: 10/11/2024 07:45 ET Workstation ID: [id number] Transcribed By: Self Edit Transcribed Date: 10/11/2024 07:44 ET Narrative 10/11/2024 7:45 AM EST EXAMINATION: Chest 2 views. CLINICAL INDICATION: Chest pain. COMPARISON: None. FINDINGS: The lungs are well-expanded and clear of acute process. The heart size and pulmonary vascularity is normal. No gross bony abnormality seen. Procedure Note Anurag Lee MD - 10/11/2024 EXAMINATION: Chest 2 views. CLINICAL INDICATION: Chest pain. COMPARISON: None. FINDINGS: The lungs are well-expanded and clear of acute process. Theheart size and pulmonary vascularity is normal. No gross bony abnormalityseen. IMPRESSION: Normal chest exam. -------- FINAL REPORT -------- Dictated By: Anurag Lee Dictated Date: 10/11/2024 07:44 ET Assigned Physician: Anurag Lee Reviewed and Electronically Signed By: Anurag Lee Signed Date: 10/11/2024 07:45 ET Workstation ID: [id number] Transcribed By: Self Edit Transcribed Date: 10/11/2024 07:44 ET Cesia Ashby MD IMG XR PROCEDURE S * Troponin I high sensitivity (10/11/2024 5:03 AM EST) Only the most recent of2 resultswithin the time period is included. [facility] High Sensitivity Troponin I 3 <=54 ng/L LAB CHEMISTRY METHOD 10/11/2024 5:29 AM EST [facility] Blood Venous blood specimen / Unknown Venipuncture / Unknown 10/11/2024 5:03 AM EST 10/11/2024 5:07 AM EST Narrative [facility] - 10/11/2024 5:29 AM EST High levels of biotin in samples may falsely decrease hsTroponin values. ??Use caution when interpreting hsTroponin results in patients taking biotin who exhibit renal impairment (eGFR <60) or in patients taking more than 20 mg/day of biotin. Cesia Ashby MD LAB BLOOD ORDERA BLES [facility] [address] [place] [address], * ECG 12 lead (10/11/2024 4:59 AM EST) Only the most recent of2 resultswithin the time period is included. [facility] Ventricular Rate ECG 99 BPM GEMUSE Atrial Rate 99 BPM GEMUSE P-R Interval 136 ms GEMUSE QRS Duration 80 ms GEMUSE Q-T Interval 356 ms GEMUSE QTc 456 ms GEMUSE P Wave [place] 60 degrees GEMUSE R [place] 32 degrees GEMUSE T [place] 51 degrees GEMUSE ECG Interpretation Normal sinus rhythm with sinus arrhythmia Cannot rule out Anterior infarct , age undetermined Abnormal ECG When compared with ECG of 11-OCT-2024 03:51, (unconfirmed) No significant change was found Confirmed by Rocio HONG JAMES ([id number]) on 10/11/2024 4:48:08 PM GEMUSE 10/11/2024 4:59 AM EST 10/11/2024 4:48 PM EST Cesia Ashby MD ECG ORDERABLES GEMUSE * POC , urine manually resulted (10/11/2024 4:13 AM EST) Pathologist [facility] HCG, Ur POC Negative Negative POC hCG Int QC Pass? Yes Yes Urine Urine specimen obtained by clean catch procedure / Unknown 10/11/2024 4:13 AM EST Cesia Ashby MD POINT OF CARE TE ST ENTER/EDIT ORDERABLES * (ABNORMAL) Urinalysis with reflex microscopic and culture (10/11/2024 4:03 AM EST) Pathologist [facility] Specific [place] Urine 1.011 1.003 - 1.030 LAB URINALYSIS - AUTOMATED METHOD 10/11/2024 4:28 AM [facility] pH, Urine 6.0 5.0 - 8.0 pH LAB URINALYSIS - AUTOMATED METHOD 10/11/2024 4:28 AM [facility] Leukocytes, Urine Trace(A) Negative LAB URINALYSIS - AUTOMATED METHOD 10/11/2024 4:28 AM [facility] Nitrite, Urine Negative Negative LAB URINALYSIS - AUTOMATED METHOD 10/11/2024 4:28 AM [facility] Protein, Urine Negative <=Trace mg/dL LAB URINALYSIS - AUTOMATED METHOD 10/11/2024 4:28 AM [facility] Glucose, Urine Negative Negative mg/dL LAB URINALYSIS - AUTOMATED METHOD 10/11/2024 4:28 AM [facility] Ketones, Urine Negative Negative mg/dL LAB URINALYSIS - AUTOMATED METHOD 10/11/2024 4:28 AM [facility] Urobilinogen , Urine 0.2 0.2 - 1.0 mg/dL LAB URINALYSIS - AUTOMATED METHOD 10/11/2024 4:28 AM [facility] Bilirubin, Urine Negative Negative LAB URINALYSIS - AUTOMATED METHOD 10/11/2024 4:28 AM [facility] Blood, Urine Negative Negative LAB URINALYSIS - AUTOMATED METHOD 10/11/2024 4:28 AM [facility] RBC, Urine 4 0 - 4 /HPF LAB URINALYSIS - AUTOMATED METHOD 10/11/2024 4:28 AM [facility] WBC, Urine 5.8(H) 0 - 4 /HPF LAB URINALYSIS - AUTOMATED METHOD 10/11/2024 4:28 AM [facility] Squamous Epithelial, Urine >100(H) 0 - 60 /LPF LAB URINALYSIS - AUTOMATED METHOD 10/11/2024 4:28 AM [facility] Bacteria, Urine Moderate(A) Negative /HPF LAB URINALYSIS - AUTOMATED METHOD 10/11/2024 4:28 AM [facility] Hyaline Casts, Urine 2.4 0 - 3 /LPF LAB URINALYSIS - AUTOMATED METHOD 10/11/2024 4:28 AM [facility] Urine Urine specimen obtained by clean catch procedure / Unknown Non-blood Collection / Unknown 10/11/2024 4:03 AM EST 10/11/2024 4:08 AM EST Cesia Ashby MD LAB URINE ORDERA BLES [facility] [address] [place] [address], [place] [phone] * Osman urine culture tube (10/11/2024 4:03 AM EST) Pathologist [facility] Extra Tube Hold for add-ons. 10/11/2024 6:01 AM EST [facility] Comment:Auto resulted. Urine Urine specimen obtained by clean catch procedure / Unknown Non-blood Collection / Unknown 10/11/2024 4:03 AM EST 10/11/2024 4:08 AM EST Cesia Ashby MD LAB URINE ORDERA BLES [facility] [address] [place] [address], [place] [phone] * Culture urine (10/11/2024 4:03 AM EST) Only the most recent of2 resultswithin the time period is included. [facility] Culture, Urine No growth 10/12/2024 10:58 AM EST [facility] Urine Urine specimen obtained by clean catch procedure / Unknown Non-blood Collection / Unknown 10/11/2024 4:03 AM EST 10/11/2024 4:28 AM EST Cesia Ashby MD LAB MICROBIOLOGY - GENERAL ORDERABLES [facility] [address] [place] [address], [place] [phone] * (ABNORMAL) CBC auto differential (10/11/2024 4:00 AM EST) WBC 14.3(H) 4.8 - 10.8 K/[facility] LAB HEMETOLOGY METHOD 10/11/2024 4:07 AM EST [facility] RBC 4.20 3.80 - 4.80 M/[facility] LAB HEMETOLOGY METHOD 10/11/2024 4:07 AM [facility] Hemoglobin 14.2 11.5 - 16.0 g/dL LAB HEMETOLOGY METHOD 10/11/2024 4:07 AM [facility] Hematocrit 42.6 35.0 - 47.0 % LAB HEMETOLOGY METHOD 10/11/2024 4:07 AM [facility] MCV 101.9(H) 79.0 - 98.0 FL LAB HEMETOLOGY METHOD 10/11/2024 4:07 AM [facility] MCH 34.0(H) 27.0 - 32.0 pcg LAB HEMETOLOGY METHOD 10/11/2024 4:07 AM [facility] MCHC 33.3 32.0 - 37.0 g/dL LAB HEMETOLOGY METHOD 10/11/2024 4:07 AM [facility] RDW 13.5 11.0 - 15.0 % LAB HEMETOLOGY METHOD 10/11/2024 4:07 AM [facility] Platelets 360 130 - 400 K/mcL LAB HEMETOLOGY METHOD 10/11/2024 4:07 AM [facility] MPV 8.5 7.0 - 11.0 FL LAB HEMETOLOGY METHOD 10/11/2024 4:07 AM [facility] NRBC 0.0 <1.0 % LAB HEMETOLOGY METHOD 10/11/2024 4:07 AM [facility] NRBC Absolute 0.00 <0.10 K/mcL LAB HEMETOLOGY METHOD 10/11/2024 4:07 AM [facility] Neutrophils Relative 59.4 % LAB HEMETOLOGY METHOD 10/11/2024 4:07 AM [facility] Lymphocytes Relative 31.4 % LAB HEMETOLOGY METHOD 10/11/2024 4:07 AM [facility] Monocytes Relative 7.3 % LAB HEMETOLOGY METHOD 10/11/2024 4:07 AM EST [facility] Eosinophils Relative 0.8 % LAB HEMETOLOGY METHOD 10/11/2024 4:07 AM [facility] Basophils Relative 0.8 % LAB HEMETOLOGY METHOD 10/11/2024 4:07 AM [facility] Immature Granulocytes Relative 0.3 % LAB HEMETOLOGY METHOD 10/11/2024 4:07 AM EST [facility] Neutrophils Absolute 8.50(H) 1.50 - 7.00 K/mcL LAB HEMETOLOGY METHOD 10/11/2024 4:07 AM EST [facility] Lymphocytes Absolute 4.49 1.00 - 5.00 K/mcL LAB HEMETOLOGY METHOD 10/11/2024 4:07 AM [facility] Monocytes Absolute 1.04(H) 0.20 - 1.00 K/mcL LAB HEMETOLOGY METHOD 10/11/2024 4:07 AM EST [facility] Eosinophils Absolute 0.11 0.00 - 0.50 K/mcL LAB HEMETOLOGY METHOD 10/11/2024 4:07 AM EST [facility] Basophils Absolute 0.11 0.00 - 0.20 K/mcL LAB HEMETOLOGY METHOD 10/11/2024 4:07 AM [facility] Immature Granulocytes Absolute 0.05(H) 0.00 - 0.03 K/mcL LAB HEMETOLOGY METHOD 10/11/2024 4:07 AM [facility] Blood Venous blood specimen / Unknown Venipuncture / Unknown 10/11/2024 4:00 AM EST 10/11/2024 4:04 AM EST Cesia Ashby MD LAB BLOOD ORDERA BLES [facility] [address] [place] [address], * Magnesium (10/11/2024 4:00 AM EST) Pathologist [facility] Magnesium 1.9 1.9 - 2.6 mg/dL LAB CHEMISTRY METHOD 10/11/2024 4:35 AM [facility] Blood Venous blood specimen / Unknown Venipuncture / Unknown 10/11/2024 4:00 AM EST 10/11/2024 4:04 AM EST Cesia Ashby MD LAB BLOOD ORDERA BLES Performing Organization Address [facility]/ZIP Co de Phone Number [facility] [address] [place] [address], [place] [phone] * Lipase (10/11/2024 4:00 AM EST) [facility] Lipase 37 13 - 75 unit/L LAB CHEMISTRY METHOD 10/11/2024 4:35 AM [facility] Blood Venous blood specimen / Unknown Venipuncture / Unknown 10/11/2024 4:00 AM EST 10/11/2024 4:04 AM EST Cesia Ashby MD LAB BLOOD ORDERA BLES Performing Organization Address City/[facility]/ZIP Co de Phone Number [facility] [address] [place] [address], [place] [phone] * Comprehensive metabolic panel (10/11/2024 4:00 AM EST) Pathologist [facility] Sodium 136 133 - 145 mmol/L LAB CHEMISTRY METHOD 10/11/2024 4:35 AM EST [facility] Potassium 4.1 3.5 - 5.5 mmol/L LAB CHEMISTRY METHOD 10/11/2024 4:35 AM [facility] Chloride 103 96 - 110 mmol/L LAB CHEMISTRY METHOD 10/11/2024 4:35 AM EST [facility] CO2 27 21 - 32 mmol/L LAB CHEMISTRY METHOD 10/11/2024 4:35 AM [facility] Anion Gap 6 3 - 11 LAB CHEMISTRY METHOD 10/11/2024 4:35 AM [facility] Glucose 97 70 - 100 mg/dL LAB CHEMISTRY METHOD 10/11/2024 4:35 AM [facility] BUN 11 5 - 25 mg/dL LAB CHEMISTRY METHOD 10/11/2024 4:35 AM [facility] Creatinine 0.87 0.50 - 1.10 mg/dL LAB CHEMISTRY METHOD 10/11/2024 4:35 AM [facility] eGFR 90 >=60 mL/min/1. 73m2 LAB CHEMISTRY METHOD 10/11/2024 4:35 AM [facility] Comment:Calculation based on the??Chronic Kidney Disease Epidemiology Collaboration (CKD-EPI) equation refit??without adjustment for race. BUN/Creatinine Ratio 12.6 LAB CHEMISTRY METHOD 10/11/2024 4:35 AM [facility] Calcium 9.8 8.5 - 10.5 mg/dL LAB CHEMISTRY METHOD 10/11/2024 4:35 AM [facility] AST (SGOT) 19 10 - 42 unit/L LAB CHEMISTRY METHOD 10/11/2024 4:35 AM [facility] ALT (SGPT) 33 10 - 60 unit/L LAB CHEMISTRY METHOD 10/11/2024 4:35 AM [facility] Alkaline Phosphatase 91 42 - 121 unit/L LAB CHEMISTRY METHOD 10/11/2024 4:35 AM [facility] Total Protein 7.2 6.0 - 8.0 g/dL LAB CHEMISTRY METHOD 10/11/2024 4:35 AM [facility] Albumin 4.0 3.2 - 5.0 g/dL LAB CHEMISTRY METHOD 10/11/2024 4:35 AM [facility] Total Bilirubin 0.3 0.0 - 1.4 mg/dL LAB CHEMISTRY METHOD 10/11/2024 4:35 AM EST [facility] Blood Venous blood specimen / Unknown Venipuncture / Unknown 10/11/2024 4:00 AM EST 10/11/2024 4:04 AM EST Cesia Ashby MD LAB BLOOD ORDERA BLES [facility] [address] [place] [address], * ECG-Annotated (10/11/2024) Only the most recent of2 resultswithin the time period is included. Provider Onbase ECG ORDERABLES * US Breast Limited Left (10/10/2024 10:21 AM EST) Anatomical Region Laterality Modality Breast Left Ultrasound 10/10/2024 10:4 3 AM EST Narrative 10/10/2024 10:45 AM EST Please refer to the combined diagnostic mammogram and breast ultrasound report. ?? BI-RADS CATEGORY: 1 - NEGATIVE RECOMMENDATION: Clinical management of left breast is recommended. MAMMO LOCATION: -------- FINAL REPORT -------- Dictated By: Kaley Aguilar Dictated Date: 10/10/2024 10:43 ET Assigned Physician: Kaley Aguilar Reviewed and Electronically Signed By: Kaley Aguilar Signed Date: 10/10/2024 10:45 ET Workstation ID: [id number] Transcribed By: Self Edit Transcribed Date: 10/10/2024 10:43 ET Procedure Note Kaley Aguilar MD - 10/10/2024 Please refer to the combined diagnostic mammogram and breast ultrasoundreport. BI-RADS CATEGORY: 1 - NEGATIVE RECOMMENDATION: Clinical management of left breast is recommended. MAMMO LOCATION: -------- FINAL REPORT -------- Dictated By: Kaley Aguilar Dictated Date: 10/10/2024 10:43 ET Assigned Physician: Kaley Aguialr Reviewed and Electronically Signed By: Kaley Aguilar Signed Date: 10/10/2024 10:45 ET Workstation ID: [id number] Transcribed By: Self Edit Transcribed Date: 10/10/2024 10:43 ET Rosio OVALLES IMMartinez US PROCEDURES * MG Mammo Digital Diagnostic w Timur bilat (10/10/2024 10:10 AM EST) Anatomical Region Laterality Modality Breast Bilateral Mammography 10/10/2024 10:3 5 AM EST Impressions 10/10/2024 10:43 AM EST No mammographic or sonographic correlate for the palpable lump in the left upper outer breast or for the left breast skin lesion. ??Further management of breast symptoms should be clinically based. BREAST DENSITY: B - There are scattered areas of fibroglandular density. BI-RADS CATEGORY: 1 - NEGATIVE RECOMMENDATION: Screening bilateral mammogram recommended at age 40 unless clinically indicated earlier. Clinical management of left breast is recommended. MAMMO LOCATION: [facility], [address] [place] [address], [id number], . -------- FINAL REPORT -------- Dictated By: Kaley Aguilar Dictated Date: 10/10/2024 10:35 ET Assigned Physician: Kaley Aguilar Reviewed and Electronically Signed By: Kaley Aguilar Signed Date: 10/10/2024 10:43 ET Workstation ID: [id number] Transcribed By: Self Edit Transcribed Date: 10/10/2024 10:35 ET Narrative 10/10/2024 10:43 AM EST EXAM: MG MAMMO DIGITAL DIAGNOSTIC W TIMUR BILAT HISTORY: Palpable lump in the left upper outer breast noted by the nurse practitioner. ??Patient reports bilateral intermittent red skin lumps. COMPARISON: NONE TECHNIQUE: Bilateral mediolateral oblique and craniocaudal views ??were obtained digitally with 3-D mammogram (digital breast tomosynthesis). Computer-aided detection was utilized in evaluation of this exam (CAD). FINDINGS: On mammography, no suspicious mass, architectural distortion, or suspicious calcifications. Targeted sonography performed in the left upper outer breast without a solid or cystic lesion identified. ??Patient delineated a very small red skin lesion at the left lateral areolar margin without a sonographic correlate identified. Procedure Note Kaley Aguilar MD - 10/10/2024 EXAM: MG MAMMO DIGITAL DIAGNOSTIC W TIMUR BILAT HISTORY: Palpable lump in the left upper outer breast noted by the nursepractitioner. Patient reports bilateral intermittent red skin lumps. COMPARISON: NONE TECHNIQUE: Bilateral mediolateral oblique and craniocaudal views wereobtained digitally with 3-D mammogram (digital breast tomosynthesis).Computer-aided detection was utilized in evaluation of this exam (CAD). FINDINGS: On mammography, no suspicious mass, architectural distortion, orsuspicious calcifications. Targeted sonography performed in the left upper outer breast without asolid or cystic lesion identified. Patient delineated a very small redskin lesion at the left lateral areolar margin without a sonographiccorrelate identified. IMPRESSION: No mammographic or sonographic correlate for the palpable lump in the leftupper outer breast or for the left breast skin lesion. Further managementof breast symptoms should be clinically based. BREAST DENSITY: B - There are scattered areas of fibroglandular density. BI-RADS CATEGORY: 1 - NEGATIVE RECOMMENDATION: Screening bilateral mammogram recommended at age 40 unlessclinically indicated earlier. Clinical management of left breast isrecommended. MAMMO LOCATION: [facility], [address] [place] [address], [id number], . -------- FINAL REPORT -------- Dictated By: Kaley Aguilar Dictated Date: 10/10/2024 10:35 ET Assigned Physician: Kaley Aguilar Reviewed and Electronically Signed By: Kaley Aguilar Signed Date: 10/10/2024 10:43 ET Workstation ID: [id number] Transcribed By: Self Edit Transcribed Date: 10/10/2024 10:35 ET Rosio OVALLES IMG BI PROCEDURES * HIV 1,2 antibody, p24 antigen with reflex to differentiation (10/03/2024 12:30 PM EST) HIV Combo AB/AG Negative Negative LAB CHEMISTRY METHOD 10/03/2024 6:05 PM EST [facility] Blood Venous blood specimen / Unknown Venipuncture / Unknown 10/03/2024 12:30 PM EST 10/03/2024 12:30 PM EST Narrative [facility] - 10/03/2024 6:05 PM EST This assay is a 4th generation assay allowing for earlier detection of HIV infection by detecting the presence of the HIV-1 p24 antigen as well as the traditional antibodies to HIV type 1 (including group O) and type 2. ??Use of a 4th generation assay is the current CDC recommendation for HIV screening. Rosio OVALLES LAB BLOOD ORDERABLES [facility] [address] [place] [address], * (ABNORMAL) POC Urine Auto W/O Micro (10/03/2024 11:48 AM EST) Nitrite UA POC Negative Negative Urobilinogen UA POC Negative Negative Protein UA POC Positive(A) Negative PH UA POC 6.5 5.0 - 9.0 Blood UA POC Trace Negative, Trace Specific [place] UA POC 1.015 1.001 - 1.035 Ketones UA POC Negative Negative Bilirubin UA POC Negative Negative Glucose UA POC Normal Normal, Trace Urine Urine specimen obtained by clean catch procedure / Unknown 10/03/2024 11:48 AM EST Rosio OVALLES POINT OF CARE TEST E NTER/EDIT ORDERABLES * (ABNORMAL) Urinalysis microscopic only (10/03/2024 11:26 AM EST) RBC, Urine 2.4 0 - 4 /HPF LAB URINALYSIS - AUTOMATED METHOD 10/03/2024 2:54 PM EST [facility] WBC, Urine 10.0(H) 0 - 4 /HPF LAB URINALYSIS - AUTOMATED METHOD 10/03/2024 2:54 PM EST [facility] Squamous Epithelial, Urine >100(H) 0 - 60 /LPF LAB URINALYSIS - AUTOMATED METHOD 10/03/2024 2:54 PM EST [facility] Bacteria, Urine Many(A) Negative /HPF LAB URINALYSIS - AUTOMATED METHOD 10/03/2024 2:54 PM [facility] Hyaline Casts, Urine 5.7(H) 0 - 3 /LPF LAB URINALYSIS - AUTOMATED METHOD 10/03/2024 2:54 PM [facility] Urine Urine specimen obtained by clean catch procedure / Unknown Non-blood Collection / Unknown 10/03/2024 11:26 AM EST 10/03/2024 11:26 AM EST Rosio OVALLES LAB URINE ORDERABLES Performing Organization Address City/[facility]/ZIP Co de Phone Number [facility] [address] [place] [address], * Pap smear (05/26/2021) 05/26/2021 Narrative HISTORICAL TESTING LAB RESULTING AGENCY - 05/28/2021 8:00 AM EDT [id number] THINPREP PAP, IMAGED: NEGATIVE FOR SQUAMOUS INTRAEPITHELIAL LESION AND MALIGNANCY . TRICHOMONAS IS PRESENT. LORENA IS PRESENT. ABUNDANT PARTIALLY OBSCURING ACUTE INFLAMMATORY CELLS ARE PRESENT. ROCIO NAVARRO(ASCP) (CASE ELECTRONICALLY SIGNED 05 27 2021) ADEQUACY: SATISFACTORY ENDOCERVICAL/TRANSFORMATION ZONE COMPONENT ABSENT. SOURCE: THINPREP PAP HPV IF ASCUS, CERVICAL, IMAGED CLINICAL INFORMATION: HPV IF DIAGNOSIS OF ASCUS. HORMONES, LMP 05/05/21, Z12.4 Karlene Weinberg CNM LAB CYTOLOGY ORDERAB LES HISTORICAL TESTING LAB RESULTING AGENCY from Last 3 Months or Most Recently Relevant to Health Maintenance Care Teams Bar Pilot Relationship Specialty Start Date End Date Saloni Patino MD PCP - General Internal Medicine 08/09/22
--- OUTSIDE RECORDS SUMMARY | 2024-12-30 19:52 | XMS_ITS | Clinical Summary ---
Author Organization [facility] Address [address] [place] [address] Phone Care Team Providers Care Lot Porter Name Role Phone Nara Grijalva Primary Care Provider [phone] [facility] Unavailable [phone] Reason for Visit and Chief Complaint Established Patient Plan of Treatment Pending Tests Order Diagnosis Results Due Ordering P moustapha Follow Up - Appointment 2 Weeks Cellulitis of right finger 02/29/24 Joyce Magana MD Last Documented On 4 11:07AM ; [facility] Assessments Includes: Assessments from this encounter No [...] Last Documented: On 02/29/2024 10:11A M ; [facility] Results Includes: Results discussed during this encounter [...] min 3 views (Right, Right Hand, Thumb) [id number] Cellulitis of right finger Joyce Magana MD [facility] 02/29/2024 Last Documented On 4 8:39AM ; [facility] Medical History Includes: Medical History addressed during [...] Time Diagnosis Established Patient Joyce Magana MD [facility] 024 10:00AM 10:14AM Insurance Includes: Active Insurance Policies Plan Name Member ID Group # Subscriber Relationship Effect carla Dates 1 - [facility] [id number] HERMAN DILLARD Self Clinical Notes Includes: Clinical Notes from this encounter * Progress note Date Encounter Last Documented by 02/29/2024 Established Patient Triston handley rosa on 02/29/2024; 11:07 AM, Joyce Magana MD; [facility], Physical Findings - Vitals taken [...]
== END 2024-12-30 19:50 | disposition home or self-care (01) ==
LOC: HO.MRI 19:49
PROVIDERS: PCP Physician Assistant Medical; Visit Provider Anesthesiology
DX: M48.00 Spinal stenosis, site unspecified (principal)
CPT/HCPCS: 72148

== ENCOUNTER 2025-01-06 13:26 | Outpatient (AMB) | payer MEDICAID, SELFPAY ==
--- NOTE | 2025-01-06 13:28 | MHC.OFFVIS ---
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 On the MRI there is no spinal canal stenosis which I was suspecting when she was complaining on urine incontinence. There are some arthritis and some foraminal stenosis L4-5 and L5-S1. I offered the patient transforaminal epidural steroid injections however she stated that she received those injections in the past and they were not helpful. I offered her to have physical therapy and she stated that she will think about it. I offered also her spinal cord stimulator and gave her brochure of Libox SCS device. If patient decides to go for either physical therapy or spinal cord stimulation therapy she needs to give us a call and schedule another appointment. Prior: She reports widespread pain starting from lower neck down the pain in between the shoulder blades lower thoracic spine lumbar spine pain in bilateral sacroiliac joints pain in bilateral knees. She reports that all of those pains are very severe and interfere with her activities of daily living. In the past she was under observation of sacroiliitis in this office she was treated with 2 injections 1 diagnostic and therapeutic to help her pain. She reports that she is smoking cigarettes. 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 I offered her to perform repeat of bilateral sacroiliac joint injections to at least help pain in the lower lumbar spine. Patient refused. [facility] Medical History Chronic right sacroiliac joint pain Disc degeneration, lumbar Dorsalgia of cervicothoracic region Osteoarthritis of right hip Sacroiliitis Spondylosis of lumbar region without myelopathy or radiculopathy Social History (Updated 05/03/24 @ 14:52 by PATT Diane) Alcohol intake: current Alcohol intake frequency: holidays/special occasions only Substance Use Type: Marijuana Current occupational status: unemployed Current occupation: rt hand Review of Systems Const All systems reviewed & are unremarkable except as noted in HPI and below ENT Reports Normal hearing present Neuro Reports Normal hearing present, Denies confusion and Denies Sensory deficit (Neuro) Psych Denies confusion Physical Exam Vital Signs: Last Vital Signs Pulse 77 01/06/25 13:29 Resp 16 01/06/25 13:29 BP 138/89 01/06/25 13:29 Pulse Ox 96 01/06/25 13:29 Oxygen Delivery Method Room Air 01/06/25 13:29 BMI result Body Mass Index 33.3 Const General: comfortable, no acute distress, well developed, alert and awake; No confusion Orientation/consciousness: No confusion Eyes Pupils: Equal, round and reactive pupils present EOM: EOMs intact bilaterally Chest Chest palpation & inspection: normal inspection of the chest Resp Effort & Inspection: normal respiratory effort, able to speak in complete sentences, normal respiratory pattern, no audible wheezes and no cough Cardio Jugular venous distension: no JVD Back/Spine/Pelvis Other: tenderness on palpation in paraspinal spinal region in lumbar spine. Loading test is positive. Range of motion in lumbar spine is preserved. However she reports severe pain flexing backward and flexing forward. Garrett test is positive on the right she also reports discomfort in her groin with performing of Garrett test on the right. Straight leg rising is negative bilaterally. She exhibits normal strength of bilateral lower extremities is able to walk on bilateral feet non bilateral toes and on bilateral heels. She denies any sensory changes in bilateral lower extremities. She admits incontinence with urine, Valsalva is positive for increase of the pain in the back. Neuro General: No confusion Cranial nerves: Yes Equal, round and reactive pupils present and Yes Normal hearing present Sensory Exam: No Sensory deficit (Neuro) Psych Speech and movement: Normal speech and movement present Affect: normal affect Attitude: cooperative Thought process: Normal thought process present Thought content: Normal thought content present Insight: Good insight present (Psych) Judgement: Good judgement present (Psych) Results Reviewed Results Reviewed: MR LUMBAR SPINE WITHOUT CONTRAST 12/31/2024 CLINICAL INFORMATION: Spinal stenosis, lumbar region. COMPARISON: None available. TECHNIQUE: MRI of the lumbar spine was obtained using routine sequences without contrast. FINDINGS: Last rib-bearing vertebra labeled T12. No bone marrow STIR signal marrow edema. Disc desiccation, L4-5 and L5-S1 level. The alignment is normal. The conus medullaris ends at pedicle of L1 with normal signal. T12-L1: No disc herniation. No neuroforamina stenosis. L1-2: No disc herniation. No neuroforamina stenosis. L2-3: Broad-based disc bulging. No compression upon neural elements. L3-4: Broad-based disc bulging. Facet joint and ligamentum flavum hypertrophy. Facet effusion. No neuroforamina stenosis. No central spinal canal stenosis. L4-5: Right subarticular and foraminal broad-based disc herniation with a subtle focal hyperintense T2 signal suggesting annular fissure encroaching the right L5 and possibly right L4 exiting nerve root. Facet joint and ligamentum flavum hypertrophy. L5-S1: Central slightly right subarticular broad-based disc herniation resulting in ventral indentation to the thecal sac. Facet joint hypertrophy. No neuroforamina stenosis. There is a subtle focal hyperintense T2 signal in the disc likely annular fissure. No prevertebral compartment hematoma, mass or fluid collections. IMPRESSION: Right subarticular and foraminal broad-based disc herniation encroaching the right L5 and possibly the right L4 exiting nerve roots. Central slightly right subarticular broad-based disc herniation L5-S1 without compression upon neural elements. Assessment & Plan Assessment & Plan (1) Lumbar radiculopathy: Code(s): M54.16 - Radiculopathy, lumbar region Category: Medical (2) Left knee pain: Code(s): M25.562 - Pain in left knee Category: Medical (3) Right knee pain: Code(s): M25.561 - Pain in right knee Category: Medical (4) Rheumatoid arthritis: Code(s): M06.9 - Rheumatoid arthritis, unspecified Category: Medical (5) Spinal stenosis: Code(s): M48.00 - Spinal stenosis, site unspecified Category: Medical Plan MRI is not evident of any central canal stenosis. Some moderate spinal foraminal stenosis could indicate possibly a need for transforaminal epidural steroid injection. However the patient stated that she had those injections and they were not helpful. We also performed sacroiliac joint injections. Patient does not want those injections to be done on her. I also offered her physical therapy to treat her pain she promised to think about it. I recommended her for her spasticity in lower extremities to take [id number] magnesium 3 times a day pill, I recommended her to take those medications with food. Coding Level of Care Code Est Pt Level 3 (64119) Diagnoses Lumbar radiculopathy M54.16 Left knee pain M25.562 Right knee pain M25.561 Rheumatoid arthritis M06.9 Spinal stenosis M48.00
[2025-01-06 13:29] VITALS: BP 138/89; PULSE 77; RESP 16; O2SAT 96; BMI 33.3
== END 2025-01-06 13:41 | disposition home or self-care (01) ==
PROVIDERS: PCP Physician Assistant Medical; Visit Provider Anesthesiology
DX: M54.16 Radiculopathy, lumbar region (principal); M25.562 Pain in left knee; M25.561 Pain in right knee; M06.9 Rheumatoid arthritis, unspecified; M48.00 Spinal stenosis, site unspecified
CPT/HCPCS: 99213

== ENCOUNTER → 2025-01-06 13:26 | Outpatient (BNVA) | payer MEDICAID, SELFPAY | PROVIDERS: PCP Physician Assistant Medical; Visit Provider Anesthesiology | DX: M54.16 Radiculopathy, lumbar region (principal); M25.562 Pain in left knee; M25.561 Pain in right knee; M06.9 Rheumatoid arthritis, unspecified; M48.00 Spinal stenosis, site unspecified | CPT/HCPCS: 99212 ==